=== PATIENT | female | born 1940 | race Caucasian/White ===

== ENCOUNTER 2021-05-06 15:24 | Inpatient (IN) | payer MEDICARE, OTHER ==
[~2021-05-06] VITALS: Ht 147.3 cm; Wt 70.0 kg
[2021-05-06 15:50] LABS: BASOPHILS ABSOLUTE AUTO 0.11 K/mm3 (0.00-0.23); BASOPHILS PERCENT AUTO 1 % (0-2); EOSINOPHILS ABSOLUTE AUTO 0.05 K/mm3 (0.00-0.68); EOSINOPHILS PERCENT AUTO 0 % (0-6); Hematocrit 37.8 % (33.0-51.0); Hemoglobin 12.5 g/dL (11.5-16.0); IMMATURE GRAN ABSOLUTE AUTO 0.26 K/mm3 (0.00-0.10); IMMATURE GRAN PERCENT AUTO 1 % (0-1); LYMPHOCYTES ABSOLUTE AUTO 1.03 K/mm3 (0.84-5.20); LYMPHOCYTES PERCENT AUTO 5 % (21-46); MONOCYTES ABSOLUTE AUTO 1.38 K/mm3 (0.16-1.47); MONOCYTES PERCENT AUTO 7 % (4-13); Mean Corpuscular HGB Conc 33.1 g/dL (31.5-36.5); Mean Corpuscular Volume 91 fL (80-100); Mean Platelet Volume 9.4 fL (9.1-12.4); NEUTROPHILS ABSOLUTE AUTO 17.61 K/mm3 (1.96-9.15); NEUTROPHILS PERCENT AUTO 86 % (41-73); Platelet Count 326 K/mm3 (150-400); RDW Coefficient Variation 13.6 % (11.7-14.2); RDW Standard Deviation 46.1 fL (35.1-46.3); Red Blood Cell Count 4.16 M/mm3 (3.80-5.20); White Blood Cell Count 20.44 K/mm3 (4.00-11.30)
[2021-05-06 16:25] LABS: Alanine Aminotransfer (ALT/SGP 26 U/L (12-78); Albumin, Blood 2.8 g/dL (3.4-5.0); Albumin/Globulin Ratio 0.8 (0.8-1.8); Alk Phos 133 U/L (50-136); Anion Gap 5 mmol/L (6-16); Aspartate Aminotrans (AST/SGOT 18 U/L (12-37); Bilirubin, Total 0.6 mg/dL (0.1-1.0); Blood Urea Nitrogen 14 mg/dL (8-24); CO2, Blood 31 mmol/L (21-32); Calcium, Blood 8.9 mg/dL (8.5-10.1); Chloride, Blood 100 mmol/L (98-108); Creatinine, Blood 0.74 mg/dL (0.40-1.00); Globulin, Blood 3.4 g/dL (2.2-4.0); Glomerular Filtration Rate >60 (60-); Glucose, Blood 241 mg/dL (70-99); Potassium, Blood 3.2 mmol/L (3.5-5.5); Sodium, Blood 136 mmol/L (136-145); Total Protein, Blood 6.2 g/dL (6.4-8.2); Troponin I <0.015 ng/mL (0.000-0.040)
[2021-05-06 16:27] LABS: Influenza A, PCR NEGATIVE (NEGATIVE); Influenza B, PCR NEGATIVE (NEGATIVE); Resp Syncytial Virus, PCR NEGATIVE (NEGATIVE); SARS-Cov-2 (COVID-19) PCR, MMC NEGATIVE (NEGATIVE)
--- NOTE | 2021-05-06 17:50 | NUR ---
PT GIVEN SVN ORDERED. BS CRACKLES AT LLL WITH SCAT WHEEZES. FAIR AERATION. PT [place]IRAG MP TX WELL. LOOSE NPC.
[2021-05-06] MEDS ORDERED: LEVSOD75 PO (22:29)
[2021-05-06] MEDS ORDERED: HYDCHL25 PO (22:33)
[2021-05-06] MEDS ORDERED: Prozac40 MG PO (22:36)
[2021-05-06] MEDS ORDERED: OMEP20ER PO ×2 (22:37→22:38)
[2021-05-06] MEDS ORDERED: LOSA50 PO ×2 (22:37→22:46)
[2021-05-06] MEDS ORDERED: K-TAB ER20 ME1 PO (22:44)
[2021-05-06] MEDS ORDERED: FURO20 PO (22:45)
[2021-05-06] MEDS ORDERED: IBUP800 PO (22:49)
[2021-05-06] MEDS ORDERED: COLACE100 MG PO (22:52)
[2021-05-06] MEDS ORDERED: SENNA LAXATIVE8.6 MG PO (22:54)
[2021-05-06] MEDS ORDERED: Lovastatin20 MG PO (22:58)
[2021-05-06] MEDS ORDERED: ASPI81CH PO (23:01)
[2021-05-06] MEDS ORDERED: MELATONIN5 M1 PO (23:01)
[2021-05-06] MEDS ORDERED: TIOT18 INH (23:02)
[2021-05-06] MEDS ORDERED: ALBU90OI INH (23:04)
[2021-05-06] MEDS ORDERED: CENTRUM SILVER1 EAC2 PO (23:05)
[2021-05-06] MEDS ORDERED: Guaifenesin Wit10 ML PO (23:09)
[2021-05-06] MEDS ORDERED: IBUP400 PO (23:10)
[2021-05-06] MEDS ORDERED: ACET325 PO (23:12)
[2021-05-06] MEDS ORDERED: Benadryl25 MG PO (23:14)
[2021-05-07 04:41] LABS: Hematocrit 35.3 % (33.0-51.0); Hemoglobin 11.6 g/dL (11.5-16.0); Mean Corpuscular HGB 29.7 pg (26.0-34.0); Mean Corpuscular HGB Conc 32.9 g/dL (31.5-36.5); Mean Corpuscular Volume 90 fL (80-100); Mean Platelet Volume 9.7 fL (9.1-12.4); Platelet Count 338 K/mm3 (150-400); RDW Coefficient Variation 13.7 % (11.7-14.2); RDW Standard Deviation 45.3 fL (35.1-46.3); Red Blood Cell Count 3.91 M/mm3 (3.80-5.20)
[2021-05-07 04:59] LABS: Anion Gap 8 mmol/L (6-16); Blood Urea Nitrogen 18 mg/dL (8-24); Bun/Creatinine Ratio 24.3 (12.0-20.0); CO2, Blood 30 mmol/L (21-32); Calcium, Blood 9.1 mg/dL (8.5-10.1); Chloride, Blood 99 mmol/L (98-108); Creatinine, Blood 0.74 mg/dL (0.40-1.00); Glomerular Filtration Rate >60 (60-); Glucose, Blood 279 mg/dL (70-99); Potassium, Blood 3.4 mmol/L (3.5-5.5); Sodium, Blood 137 mmol/L (136-145)
--- NOTE | 2021-05-07 08:56 | NUR ---
Spoke with Dr. Davis regarding code status. Her H&P states DNR, but her orders say Full code. MD will address. Pt was also requesting prn for cough, order added.
--- NOTE | 2021-05-07 14:23 | NUR ---
Initial Interview with [facility] Community Manager Bilingual 1. Who did you speak with? Spoke with patient 2. What is the patient's prior level of functions? Independent lives with sister Suze. Suze assists with ADL's: Cooking, cleaning, bathing, and shopping. Patient has a home in [place], but due to increased need with ADL's patient and her (now ) moved to [facility] with her sister Suze. Patient with live here for the winter and return to [facility] when it is warmer. 3. What is the patient's current living situation? Lives with Suze (sister); they live in a two bedroom bungalow with stairs in the front; there is a ramp in the back if needed. 4. Is the patient and/or family able to provide transportation to and from doctor's appointments and case picker prescriptions? Yes, Suze provides transportation as needed. 5. Does patient still drive? No 6. POA/PCP/NOK: NOK: Suze (sister)/PCP: Dr. Jessika Hinojosa 7. Discharge goals: Home/TBD -Home: patient more than likely will discharge home-no barriers; patient has running water/utilities/safe home environment/support network -DME: TBD; patient has a walker ('s); cane -Medication Management: self-management/sister assists If needed -[facility] -Housekeeping need: sister Suze assists as needed -Cooking: Suze assists as needed 8. List barriers to discharge: None known at this time 9. Discharge Plan: Plan is to discharge home/TBD 10. PCP Follow up appointment: Will be scheduled within seven calendar days of discharge
--- NOTE | 2021-05-07 15:20 | NUR ---
Pt A&Ox4, pleasant with cares. VSS on 2L. Wheezing heard, pt is getting breathing tx and solumedrol. Diet changed to mechanical soft due to pt not having top dentures. PT/OT did evals on pt. recommended outpt PT and FWW. Pt had only been using cane at home and was having frequent falls. Code status changed to DNR per pt wishes. Cough medication added today. CBG elevated today [phone], sliding scale used per orders. Last BM 05/06. Pt up to BSC w/ FWW. Pt uses CPAP at night. RR high 20-30s with frequent cough and wheezing. RT is following pt and giving txs.
--- NOTE | 2021-05-07 16:06 | NUR ---
Around 1600 pt had a coughing fit that caused her to not be able to catch her breath. Reddened face, oxygen sats were mid 90s on 3-4L. RT called to bedside, but pt just had breathing tx. MD notified and new order for ativan IV added and given as well as prn albuterol neb tx Q2hr. Ativan given with some relief, RR still in 30s and oxygen sats mid 90s on 3L. PRN cough meds given.
--- NOTE | 2021-05-07 16:31 | NUR ---
Pt is still breathing shallow and at a rate of 25-30. Grunting some. IV solumedrol will be given at 1800.
--- NOTE | 2021-05-07 18:07 | NUR ---
Pt was having the cough again where she had a hard time catching her breath and desat to 87-90 on 4L oxygen. RT notified to give prn neb.
--- NOTE | 2021-05-07 18:43 | NUR ---
RT placed CPAP on pt due to work of breathing and gave a prn albuterol neb.
[2021-05-08 03:33] LABS: Hematocrit 35.8 % (33.0-51.0); Hemoglobin 11.7 g/dL (11.5-16.0); Mean Corpuscular HGB 29.6 pg (26.0-34.0); Mean Corpuscular HGB Conc 32.7 g/dL (31.5-36.5); Mean Corpuscular Volume 91 fL (80-100); Mean Platelet Volume 9.3 fL (9.1-12.4); Platelet Count 367 K/mm3 (150-400); RDW Coefficient Variation 13.8 % (11.7-14.2); RDW Standard Deviation 46.2 fL (35.1-46.3); Red Blood Cell Count 3.95 M/mm3 (3.80-5.20); White Blood Cell Count 23.56 K/mm3 (4.00-11.30)
[2021-05-08 03:59] LABS: Alanine Aminotransfer (ALT/SGP 42 U/L (12-78); Albumin, Blood 2.9 g/dL (3.4-5.0); Albumin/Globulin Ratio 0.9 (0.8-1.8); Alk Phos 129 U/L (50-136); Anion Gap 7 mmol/L (6-16); Aspartate Aminotrans (AST/SGOT 25 U/L (12-37); Bilirubin, Total 0.3 mg/dL (0.1-1.0); Blood Urea Nitrogen 28 mg/dL (8-24); Bun/Creatinine Ratio 34.7 (12.0-20.0); CO2, Blood 32 mmol/L (21-32); Calcium, Blood 9.4 mg/dL (8.5-10.1); Chloride, Blood 99 mmol/L (98-108); Creatinine, Blood 0.81 mg/dL (0.40-1.00); Globulin, Blood 3.2 g/dL (2.2-4.0); Glomerular Filtration Rate >60 (60-); Glucose, Blood 272 mg/dL (70-99); Potassium, Blood 3.6 mmol/L (3.5-5.5); Sodium, Blood 138 mmol/L (136-145); Total Protein, Blood 6.1 g/dL (6.4-8.2)
[2021-05-08 04:01] LABS: BAND PERCENT MAN 21 % (0-8); BASOPHILS PERCENT MAN 0 % (0-2); EOSINOPHILS PERCENT MAN 0 % (0-6); LYMPHOCYTES PERCENT MAN 3 % (21-46); MONOCYTES ABSOLUTE MAN 0.47 K/mm3 (0.16-1.47); MONOCYTES PERCENT MAN 2 % (4-13); MYELOCYTE ABSOLUTE MAN 0.23 K/mm3 (0.00-0.00); MYELOCYTE PERCENT MAN 1 % (0-0); NEUTROPHILS ABSOLUTE MAN 22.14 K/mm3 (1.96-9.15); SEG NEUTROPHILS PERCENT MAN 73 % (41-73); TOTAL CELLS COUNTED 100
--- NOTE | 2021-05-08 07:31 | NUR ---
SHIFT SUMMARY PT A&OX4. SP02>90% ON 5L NC. PT WORE CPAP AT [facility]. TELEMETRY READS AFIB, HR 70'S. PT INCONTINENT, C/D ATTENDS IN PLACE. WHEN WAKING PT UP FOR 0600 MEDICATIONS, PT TOOK TYLENOL FOR HIP PAIN AND BEGAN COUGHING AFTER SWALLOWING. THIS RN ASKED PT IF SHE CHOKED ON THE WATER. PT STATED NO, JUST HAVING A HARD TIME BREATHING. PT HAD MOIST COUGH. CALL PLACED TO RESPIRATORY THERAPY FOR BREATHING TREATMENT. RT IN ROOM, RECOMMENEDED DIURESING. CALL PLACED TO MD NEREIDA WITH ORDERS FOR LASIX AND CHEST XRAY. CALL LIGHT IN REACH. XRAY TO ROOM, WAITING FOR RESULTS. PT RESTING IN ROOM.
--- NOTE | 2021-05-08 14:59 | NUR ---
Pt sustaining 130-140s on torre monitor in room. Notified MD and tele was reordered and he would like for her transfer orders to be d/c at this time.
--- NOTE | 2021-05-08 15:19 | NUR ---
HR SUSTAINING 140S AFTER TELE APPLIED, PRN METOPROLOL 5MG IV PUSH GIVEN. VSS AND PT STATED FEELING A LITTLE MORE SOB, BUT NO PALPATATIONS OR OTHER SYMPTOMS AT THIS TIME.
--- NOTE | 2021-05-08 17:29 | NUR ---
Pt had another brochospasm and had prn ativan and neb and was also placed on CPAP. Desaturation to 85 on 5L, had to titrate up to 12L, paged RT. HR is still 130-140s on 15mg/hr of cardizem gtt and after IV metoprolol 5mg push, notifed.
--- NOTE | 2021-05-08 17:54 | NUR ---
Pt is still sustaining 120-140s on 15mg/hr of cardizem, BP stable. Cardiology consulted w/ phone call by charge account clerk. Powerglide is being placed for second IV access.
--- NOTE | 2021-05-08 18:26 | NUR ---
Pt will have cardioversion in AM, NPO midnight.
--- NOTE | 2021-05-08 19:22 | NUR ---
Shift note: Pt is alert and oriented, forgetful at times. VSS on 3L most of the day. Around 1600 pt had bronchospasm and was having trouble breathing, RT called to bedside and pt was given prn neb tx and placed on CPAP and given 0.5mg ativan. Pt was titrated up to as high as 12L to sustain above 90s. Was able to titrate back down to 5L on CPAP before end of shift. Pt was not on tele, but noticed the torre monitor was reading in 140s, tele ordered and pt was sustaining 130-140s. MD notified. Metoprolol 5mg IV push given with no effect. Cardizem gtt initiated and titrated up to 15mg/hr and still not much effect and was sustaining 130-140s, cardiology consulted. Pt will get FLAQUITA w/ cardioversion in AM if rate does not decrease overnight. Cardiologis made some additional changes to meds, see MAR. Pt will be NPO midnight. IV lasix given per orders. Crackles heard in bilater lower ext. IV solumedrol continued per orders and cough syrup given x1 today. ECHO completed today, see results. Pt is on mechanical soft diet due to no top dentures. CBGs have been high, sliding scale used per orders.
--- NOTE | 2021-05-08 19:45 | NUR ---
ASSUMED CARE OF PATIENT AT 1900. A/OX4 BUT FORGETFUL AT TIMES. PT REPORTS L CP THAT FEELS MUSCULAR FROM COUGHING AND IS CHRONIC IN NATURE PER PT. MAINTAINING ABOVE 90% ON 5L CPAP. LS DIM BELOW W/ FINE CRACKLES, AND FINE CRACKLES ON TOP. DESATS WITH COUGH PER REPORT FROM DAYSHIFT. AFIB ON TELEMETRY AVG 122, TRACE BLE EDEMA. FRAGILE SKIN WITH SCATTERED BRUISING. WILL UPDATE CHANGES OCCUR.
[2021-05-09 14:53] LABS: Hematocrit 40.2 % (33.0-51.0); Mean Corpuscular HGB 29.5 pg (26.0-34.0); Mean Corpuscular HGB Conc 32.3 g/dL (31.5-36.5); Mean Corpuscular Volume 91 fL (80-100); Mean Platelet Volume 9.3 fL (9.1-12.4); Platelet Count 499 K/mm3 (150-400); RDW Coefficient Variation 13.5 % (11.7-14.2); RDW Standard Deviation 46.3 fL (35.1-46.3)
[2021-05-09 15:24] LABS: BAND PERCENT MAN 7 % (0-8); BASOPHILS PERCENT MAN 0 % (0-2); EOSINOPHILS PERCENT MAN 0 % (0-6); LYMPHOCYTES ABSOLUTE MAN 1.26 K/mm3 (0.84-5.20); LYMPHOCYTES PERCENT MAN 6 % (21-46); METAMYELOCYTE ABSOLUTE MAN 0.42 K/mm3 (0.00-0.00); METAMYELOCYTE PERCENT MAN 2 % (0-0); MONOCYTES ABSOLUTE MAN 0.84 K/mm3 (0.16-1.47); MONOCYTES PERCENT MAN 4 % (4-13); MYELOCYTE ABSOLUTE MAN 0.42 K/mm3 (0.00-0.00); MYELOCYTE PERCENT MAN 2 % (0-0); NEUTROPHILS ABSOLUTE MAN 18.14 K/mm3 (1.96-9.15); SEG NEUTROPHILS PERCENT MAN 79 % (41-73); TOTAL CELLS COUNTED 100
[2021-05-09 15:29] LABS: Alanine Aminotransfer (ALT/SGP 73 U/L (12-78); Albumin, Blood 2.9 g/dL (3.4-5.0); Albumin/Globulin Ratio 0.8 (0.8-1.8); Alk Phos 136 U/L (50-136); Anion Gap 7 mmol/L (6-16); Aspartate Aminotrans (AST/SGOT 32 U/L (12-37); Bilirubin, Total 0.4 mg/dL (0.1-1.0); Blood Urea Nitrogen 40 mg/dL (8-24); Bun/Creatinine Ratio 45.9 (12.0-20.0); CO2, Blood 35 mmol/L (21-32); Calcium, Blood 9.7 mg/dL (8.5-10.1); Chloride, Blood 100 mmol/L (98-108); Creatinine, Blood 0.87 mg/dL (0.40-1.00); Globulin, Blood 3.6 g/dL (2.2-4.0); Glomerular Filtration Rate >60 (60-); Glucose, Blood 215 mg/dL (70-99); Potassium, Blood 3.7 mmol/L (3.5-5.5); Sodium, Blood 142 mmol/L (136-145); Total Protein, Blood 6.5 g/dL (6.4-8.2)
--- NOTE | 2021-05-09 18:03 | NUR ---
PT REMAINS ON 10MG/HR CARDIZEM GTT, NO CHANGE IN HR OR RHYTHM AT THIS TIME. CARDIOVERSION DID NOT TAKE PLACE TODAY. PT RESTING WELL IN BED, SHE IS INCONTENENT OF URINE BUT IS ABLE TO HELP CHANGE ATTENEDS. PT A/O X3 ANSWERING QUESITONS APPROPRIATELY. DENIES CP OR SOB. VSS. HR 80-90 WITH AFIB ON MONITOR
--- NOTE | 2021-05-10 02:09 | NUR ---
ASSUMED CARE OF PATIENT AT 1900. A/OX4. INTERMITTENT L CHEST PAIN THAT IS CHRONIC FOR PATIENT, SAYS "WORSE WHEN I COUGH". DENIES ANY SOB. MAINTAINS OVER 90% ON 4L NC OR 5L CPAP AT HS. EXPIRATORY WHEEZES T/O ALL LUNG BELTRÁN. AFIB ON TELEMETRY 80-100'S, UP TO 140'S WITH COUGH EPISODES. CARDIZEM AT 10MG. MIDWAY THROUGH THE NIGHT, PATIENT HAD A THROAT TIGHTNESS EPISODE. RT GAVE NEB TREATMENT AND PATIENT RECOVERED. DID NOT DESAT WITH EPISODE. WILL UPDATE CHANGES OCCUR.
[2021-05-10 11:39] LABS: Hematocrit 40.4 % (33.0-51.0); IMMATURE GRAN ABSOLUTE AUTO 2.29 K/mm3 (0.00-0.10); IMMATURE GRAN PERCENT AUTO 11 % (0-1); Mean Corpuscular HGB 29.2 pg (26.0-34.0); Mean Corpuscular HGB Conc 32.2 g/dL (31.5-36.5); Mean Corpuscular Volume 91 fL (80-100); Platelet Count 478 K/mm3 (150-400); RDW Coefficient Variation 13.6 % (11.7-14.2); RDW Standard Deviation 45.8 fL (35.1-46.3); Red Blood Cell Count 4.45 M/mm3 (3.80-5.20); White Blood Cell Count 21.07 K/mm3 (4.00-11.30)
[2021-05-10 12:00] LABS: Albumin, Blood 2.8 g/dL (3.4-5.0); Albumin/Globulin Ratio 0.9 (0.8-1.8); Bilirubin, Total 0.3 mg/dL (0.1-1.0); Bun/Creatinine Ratio 46.3 (12.0-20.0); Calcium, Blood 9.1 mg/dL (8.5-10.1); Creatinine, Blood 0.97 mg/dL (0.40-1.00); Globulin, Blood 3.2 g/dL (2.2-4.0); Potassium, Blood 4.1 mmol/L (3.5-5.5)
[2021-05-10 12:30] LABS: BAND PERCENT MAN 11 % (0-8); BASOPHILS PERCENT MAN 0 % (0-2); EOSINOPHILS PERCENT MAN 0 % (0-6); LYMPHOCYTES PERCENT MAN 1 % (21-46); METAMYELOCYTE PERCENT MAN 1 % (0-0); MONOCYTES PERCENT MAN 7 % (4-13); MYELOCYTE PERCENT MAN 3 % (0-0); SEG NEUTROPHILS PERCENT MAN 77 % (41-73); TOTAL CELLS COUNTED 100
[2021-05-10 12:31] LABS: BASOPHILS ABSOLUTE AUTO 0.01 K/mm3 (0.00-0.23); BASOPHILS PERCENT AUTO 0 % (0-2)
--- NOTE | 2021-05-10 17:45 | NUR ---
PT REMAINS ON CARDIZEM 10MG/HR AT THIS TIME, PT REMAINS IN AFIB HR RANGING FROM 80s-90s. PT A/O X3. ANSWERS QUESTIONS APPROPRIATELY IN FULL SENTENCES. PT HAS SLEPT WELL T/O THE DAY. PT REPORTS IMPROVEMENT OF SOB, DENIES CP. VSS. NADN. THERE ARE NO FURTHER CHANGES TO DISCUSS FOR THIS SHIFT.
--- NOTE | 2021-05-10 20:35 | NUR ---
INITIAL ASSESSMENT: PATIENT A/OX3. DENIES PAIN. ON 3L O2 VIA NC, STATES SHE WEARS 2L O2 VIA NC AT HOME BUT WILL TITRATE IT UP AND DOWN DEPENDING ON HER SHORTNESS OF BREATH AND PULSE OX READINGS. TITRATED O2 DOWN TO 2L AND SPO2 IS MAINTAINING IN THE 90'S. SHE SOUNDS SHORT OF BREATH WITH EXERTION AND WITH TALKING A LOT, VOICE IS HOARSE. HEART RATE IN THE 80'S WITH CARDIZEM DRIP AT 10, DECREASED CARDIZEM DRIP TO 5. UP TO BEDSIDE COMMODE WITH STAND BY ASSIST. STATES THAT SHE FEELS "WASHED OUT". USES A WALKING STICK OR WALKER AT HOME. LIVES WITH HER SISTER JANETH. REFUSED SCDS AT THIS TIME. CALL LIGHT IN REACH. BED ALARM ON FOR SAFETY.
[2021-05-11 05:11] LABS: Hematocrit 39.2 % (33.0-51.0); Mean Corpuscular HGB 29.7 pg (26.0-34.0); Mean Corpuscular HGB Conc 33.2 g/dL (31.5-36.5); Mean Corpuscular Volume 90 fL (80-100); Mean Platelet Volume 8.9 fL (9.1-12.4); Platelet Count 466 K/mm3 (150-400); RDW Coefficient Variation 13.4 % (11.7-14.2); RDW Standard Deviation 44.2 fL (35.1-46.3); Red Blood Cell Count 4.37 M/mm3 (3.80-5.20); White Blood Cell Count 20.31 K/mm3 (4.00-11.30)
--- NOTE | 2021-05-11 05:58 | NUR ---
SHIFT SUMMARY: PATIENT A/OX3. HAS NOT ATTEMPTED TO GET UP OOB WITHOUT CALLING THIS SHIFT. HAS DENIED PAIN. CARDIZEM DECREASED TO 5 MG/HR, HEART RATE HAS AVERAGED IN THE 90'S. 2L O2 VIA NC, CPAP WITH 3L BLED IN FOR SLEEP. SMALL AMOUNT OF NAUSEA WHICH WAS RELIEVED WITH A SNACK. UP TO BSC WITH SBA. ABLE TO REPOSITION HERSELF IN BED. STATES THAT SHE FEELS GENERALLY FATIGUED. LIVES WITH HER SISTER. REFUSED SCDS. CALL LIGHT IN REACH. BED ALARM ON FOR SAFETY.
[2021-05-11 06:00] LABS: BAND PERCENT MAN 12 % (0-8); BASOPHILS PERCENT MAN 0 % (0-2); EOSINOPHILS PERCENT MAN 0 % (0-6); LYMPHOCYTES ABSOLUTE MAN 0.81 K/mm3 (0.84-5.20); LYMPHOCYTES PERCENT MAN 4 % (21-46); METAMYELOCYTE ABSOLUTE MAN 0.81 K/mm3 (0.00-0.00); METAMYELOCYTE PERCENT MAN 4 % (0-0); MONOCYTES PERCENT MAN 2 % (4-13); MYELOCYTE ABSOLUTE MAN 1.82 K/mm3 (0.00-0.00); MYELOCYTE PERCENT MAN 9 % (0-0); NEUTROPHILS ABSOLUTE MAN 16.24 K/mm3 (1.96-9.15); PROMYELOCYTE PERCENT MAN 1 % (0-0); SEG NEUTROPHILS PERCENT MAN 68 % (41-73); TOTAL CELLS COUNTED 100
[2021-05-11 06:15] LABS: Albumin, Blood 2.6 g/dL (3.4-5.0); Albumin/Globulin Ratio 0.8 (0.8-1.8); Bilirubin, Total 0.4 mg/dL (0.1-1.0); Bun/Creatinine Ratio 46.6 (12.0-20.0); Calcium, Blood 9.3 mg/dL (8.5-10.1); Creatinine, Blood 0.95 mg/dL (0.40-1.00); Globulin, Blood 3.1 g/dL (2.2-4.0); Potassium, Blood 4.5 mmol/L (3.5-5.5); Total Protein, Blood 5.7 g/dL (6.4-8.2)
--- NOTE | 2021-05-11 17:14 | NUR ---
PT REMAINS ON CARDIZEM GTT, PO CARDIO MEDS ADJUSTED. BACK TO BASELINE HOME O2 SETTINGS. CONTINUES TO HAVE COUGH- COUGH SYRUP X1. HYPERGLYCEMIC THROUGHOUT SHIFT- MD MODIFIED DIET AND INSULIN SLIDING SCALE. WORKED WITH PT- TOLERATED WELL, SEE NOTES. AFEBRILE. AUO. BMX1. TOLERATING CURRENT DIET. FREQUENT ROUNDS TO ENSURE PT SAFETY. PT EDUCATED ON FREQUENT REPOSITIONING TO PREVENT PRESSURE ULCERS. NO APPARENT DISTRESS NOTED. WILL CONTINUE TO MONITOR UNTIL TRANSFER OF CARE TO ONCOMING RN.
[2021-05-12 05:16] LABS: Hematocrit 38.9 % (33.0-51.0); Hemoglobin 12.9 g/dL (11.5-16.0); Mean Corpuscular HGB 29.7 pg (26.0-34.0); Mean Corpuscular HGB Conc 33.2 g/dL (31.5-36.5); Mean Corpuscular Volume 89 fL (80-100); Mean Platelet Volume 8.9 fL (9.1-12.4); Platelet Count 456 K/mm3 (150-400); RDW Coefficient Variation 13.3 % (11.7-14.2); RDW Standard Deviation 44.2 fL (35.1-46.3); Red Blood Cell Count 4.35 M/mm3 (3.80-5.20); White Blood Cell Count 19.25 K/mm3 (4.00-11.30)
--- NOTE | 2021-05-12 05:25 | NUR ---
SHIFT SUMMARY PT IS ALERT AND ORIENTED. THERE HAVE BEEN NO ACUTE CHANGES T/O THE NIGHT. PT DENIES CHEST PAIN/PRESSURE. DENIES SOB. PT IS ON 2L RA AND ON CPAP AT [facility] WITH 3.5L BLEED IN. VITAL SIGNS ARE STABLE. PT HAS BEEN ON CARDIZEM GTT 5MLS/HR WITH HEART RATE AVERAGING IN HIGH 80'S TO 90'S. PT USES BSC WITH FWW, 1 ASSIST. CALL LIGHT IS WITHIN REACH. USES CALL LIGHT APPROPRIETLY.
[2021-05-12 05:37] LABS: BAND PERCENT MAN 9 % (0-8); BASOPHILS PERCENT MAN 0 % (0-2); EOSINOPHILS PERCENT MAN 0 % (0-6); LYMPHOCYTES ABSOLUTE MAN 0.96 K/mm3 (0.84-5.20); LYMPHOCYTES PERCENT MAN 5 % (21-46); METAMYELOCYTE ABSOLUTE MAN 0.19 K/mm3 (0.00-0.00); METAMYELOCYTE PERCENT MAN 1 % (0-0); MONOCYTES ABSOLUTE MAN 0.77 K/mm3 (0.16-1.47); MONOCYTES PERCENT MAN 4 % (4-13); MYELOCYTE ABSOLUTE MAN 0.77 K/mm3 (0.00-0.00); MYELOCYTE PERCENT MAN 4 % (0-0); NEUTROPHILS ABSOLUTE MAN 16.17 K/mm3 (1.96-9.15); PROMYELOCYTE ABSOLUTE MAN 0.38 K/mm3 (0.00-0.00); PROMYELOCYTE PERCENT MAN 2 % (0-0); SEG NEUTROPHILS PERCENT MAN 75 % (41-73); TOTAL CELLS COUNTED 100
[2021-05-12 06:33] LABS: Alanine Aminotransfer (ALT/SGP 51 U/L (12-78); Albumin, Blood 2.7 g/dL (3.4-5.0); Alk Phos 134 U/L (50-136); Anion Gap 9 mmol/L (6-16); Aspartate Aminotrans (AST/SGOT 15 U/L (12-37); Bilirubin, Total 0.3 mg/dL (0.1-1.0); Blood Urea Nitrogen 41 mg/dL (8-24); Bun/Creatinine Ratio 50.4 (12.0-20.0); CO2, Blood 34 mmol/L (21-32); Calcium, Blood 9.3 mg/dL (8.5-10.1); Chloride, Blood 96 mmol/L (98-108); Creatinine, Blood 0.81 mg/dL (0.40-1.00); Globulin, Blood 2.7 g/dL (2.2-4.0); Glomerular Filtration Rate >60 (60-); Glucose, Blood 335 mg/dL (70-99); Potassium, Blood 4.7 mmol/L (3.5-5.5); Sodium, Blood 139 mmol/L (136-145); Total Protein, Blood 5.4 g/dL (6.4-8.2)
--- NOTE | 2021-05-12 17:43 | NUR ---
REMAINS OF CARDIZEM GTT, AFIB WITH HR=80-110'S. CONTINUES TO HAVE HYPERGLYCEMIA, ADDITIONAL DOSE OF REGULAR INSULIN ADMINISTERED (SEE EMAR) AND LANTUS DOSE ADJUSTED. AMBULATED TO BATHROOM WITH FWW AND SBA. FREQUENT ROUNDS TO ENSURE PT SAFETY. ENCOURAGED FREQUENT REPOSITIONING TO PREVENT PRESSURE ULCERS- PT VERBALIZED UNDERSTANDING. PT IN NO APPARENT DISTRESS AT THIS TIME. WILL CONTINUE TO MONITOR UNTIL TRANSFER OF CARE TO ONCOMING RN.
--- NOTE | 2021-05-12 22:20 | NUR ---
PT IS ALERT AND ORIENTED. PT DENIES CHEST PAIN/PRESSURE OR SOB REPORTS FEELING PAIN IN LEFT ABDOMEN. PT IS ABLE TO GET UP TO THE BSC WITH MOD ASSIST. CALL LIGHT IS WITHIN REACH. WILL CONTINUE TO MONITOR.
[2021-05-13 04:15] LABS: Hematocrit 39.5 % (33.0-51.0); Hemoglobin 13.2 g/dL (11.5-16.0); Mean Corpuscular HGB 29.9 pg (26.0-34.0); Mean Corpuscular HGB Conc 33.4 g/dL (31.5-36.5); Mean Corpuscular Volume 89 fL (80-100); Mean Platelet Volume 8.8 fL (9.1-12.4); Platelet Count 440 K/mm3 (150-400); RDW Coefficient Variation 13.5 % (11.7-14.2); RDW Standard Deviation 44.5 fL (35.1-46.3); Red Blood Cell Count 4.42 M/mm3 (3.80-5.20); White Blood Cell Count 20.13 K/mm3 (4.00-11.30)
[2021-05-13 04:38] LABS: Alanine Aminotransfer (ALT/SGP 46 U/L (12-78); Albumin, Blood 2.7 g/dL (3.4-5.0); Albumin/Globulin Ratio 0.9 (0.8-1.8); Alk Phos 120 U/L (50-136); Anion Gap 7 mmol/L (6-16); Aspartate Aminotrans (AST/SGOT 12 U/L (12-37); BAND PERCENT MAN 6 % (0-8); BASOPHILS PERCENT MAN 0 % (0-2); Bilirubin, Total 0.4 mg/dL (0.1-1.0); Blood Urea Nitrogen 38 mg/dL (8-24); Bun/Creatinine Ratio 47.5 (12.0-20.0); CO2, Blood 34 mmol/L (21-32); Calcium, Blood 9.1 mg/dL (8.5-10.1); Chloride, Blood 96 mmol/L (98-108); EOSINOPHILS PERCENT MAN 0 % (0-6); Globulin, Blood 3.1 g/dL (2.2-4.0); Glomerular Filtration Rate >60 (60-); Glucose, Blood 282 mg/dL (70-99); LYMPHOCYTES PERCENT MAN 5 % (21-46); METAMYELOCYTE PERCENT MAN 1 % (0-0); MONOCYTES PERCENT MAN 2 % (4-13); MYELOCYTE PERCENT MAN 4 % (0-0); NEUTROPHILS ABSOLUTE MAN 17.71 K/mm3 (1.96-9.15); Potassium, Blood 4.8 mmol/L (3.5-5.5); SEG NEUTROPHILS PERCENT MAN 82 % (41-73); Sodium, Blood 137 mmol/L (136-145); TOTAL CELLS COUNTED 100; Total Protein, Blood 5.8 g/dL (6.4-8.2)
--- NOTE | 2021-05-13 05:38 | NUR ---
SHIFT SUMMARY PT ALERT AND ORIENTED. VITALS STABLE. NO ACUTE CHANGES T/O SHIFT. PT ON CARDIZEM GTT. DENIES CHEST PAIN AND SOB. USING BSC SBA. BED ALARM ON. CALL LIGHT IS WITHIN REACH.
--- NOTE | 2021-05-13 14:34 | NUR ---
Stopped the cardizem gtt @1430. Pt has been sustaining 80-low 100s.
--- NOTE | 2021-05-13 16:27 | NUR ---
TELE: AFIB 90-100S OFF THE CARDIZEM GTT. NEW DOSE OF CARDIZEM PO AND METOPROLOL GIVEN.
--- NOTE | 2021-05-13 16:48 | NUR ---
Pt is A&Ox4, pleasant with cares. VSS on 2L and CPAP at night. Cardizem gtt was d/c at 1430, new dose of PO cardizem and PO metoprolol started today. Up to BSC w/ min assist. CBG [phone], sliding scale given per orders.
--- NOTE | 2021-05-14 05:10 | NUR ---
SHIFT SUMMARY NO ACUTE CHANGES THIS SHIFT. VSS. AXO. WORE CPAP WHILE ASLEEP. NEW MELATONIN AND TRAZODONE MEDS SUCCESFUL AT HELPING PT SLEEP, SHE HAD BEEN COMPLAINING OF LACK OF SLEEP DURING HER HOSPITAL STAY. PT AFIB HR CONTROLLED 100'S WITH STABLE BP. OTHERWISE, PT RESTING T/O NIGHT. CALL LIGHT WITHIN REACH. BED ALARM ON.
[2021-05-14 05:24] LABS: Hematocrit 41.2 % (33.0-51.0); Hemoglobin 13.5 g/dL (11.5-16.0); Mean Corpuscular HGB 29.5 pg (26.0-34.0); Mean Corpuscular HGB Conc 32.8 g/dL (31.5-36.5); Mean Corpuscular Volume 90 fL (80-100); Mean Platelet Volume 9.1 fL (9.1-12.4); Platelet Count 407 K/mm3 (150-400); RDW Coefficient Variation 13.8 % (11.7-14.2); Red Blood Cell Count 4.57 M/mm3 (3.80-5.20); White Blood Cell Count 17.86 K/mm3 (4.00-11.30)
[2021-05-14 06:09] LABS: Alanine Aminotransfer (ALT/SGP 40 U/L (12-78); Albumin, Blood 2.7 g/dL (3.4-5.0); Alk Phos 114 U/L (50-136); Anion Gap 6 mmol/L (6-16); Aspartate Aminotrans (AST/SGOT 8 U/L (12-37); Bilirubin, Total 0.5 mg/dL (0.1-1.0); Blood Urea Nitrogen 45 mg/dL (8-24); Bun/Creatinine Ratio 53.3 (12.0-20.0); CO2, Blood 34 mmol/L (21-32); Calcium, Blood 9.1 mg/dL (8.5-10.1); Chloride, Blood 96 mmol/L (98-108); Creatinine, Blood 0.85 mg/dL (0.40-1.00); Globulin, Blood 2.6 g/dL (2.2-4.0); Glomerular Filtration Rate >60 (60-); Glucose, Blood 267 mg/dL (70-99); Magnesium, Blood 2.4 mg/dL (1.6-2.4); Phosphorus, Blood 4.3 mg/dL (2.5-4.9); Potassium, Blood 5.1 mmol/L (3.5-5.5); Sodium, Blood 136 mmol/L (136-145); Total Protein, Blood 5.3 g/dL (6.4-8.2)
[2021-05-14 07:21] LABS: BAND PERCENT MAN 5 % (0-8); BASOPHILS PERCENT MAN 0 % (0-2); EOSINOPHILS PERCENT MAN 0 % (0-6); LYMPHOCYTES ABSOLUTE MAN 0.17 K/mm3 (0.84-5.20); LYMPHOCYTES PERCENT MAN 1 % (21-46); METAMYELOCYTE ABSOLUTE MAN 0.17 K/mm3 (0.00-0.00); METAMYELOCYTE PERCENT MAN 1 % (0-0); MONOCYTES ABSOLUTE MAN 0.71 K/mm3 (0.16-1.47); MONOCYTES PERCENT MAN 4 % (4-13); MYELOCYTE ABSOLUTE MAN 0.71 K/mm3 (0.00-0.00); MYELOCYTE PERCENT MAN 4 % (0-0); NEUTROPHILS ABSOLUTE MAN 16.07 K/mm3 (1.96-9.15); SEG NEUTROPHILS PERCENT MAN 85 % (41-73); TOTAL CELLS COUNTED 100
--- NOTE | 2021-05-14 17:36 | NUR ---
SHIFT SUMMARY PT HAS BEEN RESTING IN ROOM. PT AMBULATED BY STAND-BY ASSIST TO RESTROOM TWICE, PT TOLERATED WELL. PT HAS DENIED C/O PAIN/DISCOMFORT AND HAS REPOSITIONED SELF FOR PRESSURE AND COMFORT. PT HAD AN EPISODE OF DYSPNEA AFTER AMBULATING TO THE RESTROOM THE SECOND TIME, SpO2 REMAINED >90% AND EPISODE RESOLVED AFTER A FEW MINUTES. ALL VSS, NO CHANGES TO CONDITION.
--- NOTE | 2021-05-15 04:34 | NUR ---
SHIFT SUMMARY: PATIENT A&O X4, RESTED IN BED MOST OF SHIFT WITH BIPAP ON. IV SALINE LOCKED. CALL LIGHT WITHIN REACH. AMBULATED WITH ASSISTANCE TO BEDSIDE COMMODE. CALLS APPROPRIATELY. VS STABLE T/O SHIFT. DID HAVE A COUGHING FIT AFTER AMBULATING TO BSC BUT RECOVERED WITH NO RETURN OF SYMPTOMS THIS SHIFT. WILL REPORT TO ONCOMING RN.
[2021-05-15 06:15] LABS: BASOPHILS ABSOLUTE AUTO 0.17 K/mm3 (0.00-0.23); BASOPHILS PERCENT AUTO 1 % (0-2); EOSINOPHILS ABSOLUTE AUTO 0.01 K/mm3 (0.00-0.68); EOSINOPHILS PERCENT AUTO 0 % (0-6); Hematocrit 40.9 % (33.0-51.0); Hemoglobin 13.5 g/dL (11.5-16.0); IMMATURE GRAN ABSOLUTE AUTO 1.35 K/mm3 (0.00-0.10); IMMATURE GRAN PERCENT AUTO 8 % (0-1); LYMPHOCYTES ABSOLUTE AUTO 1.03 K/mm3 (0.84-5.20); LYMPHOCYTES PERCENT AUTO 6 % (21-46); MONOCYTES ABSOLUTE AUTO 1.77 K/mm3 (0.16-1.47); MONOCYTES PERCENT AUTO 10 % (4-13); Mean Corpuscular HGB 29.5 pg (26.0-34.0); Mean Corpuscular Volume 90 fL (80-100); Mean Platelet Volume 9.1 fL (9.1-12.4); NEUTROPHILS ABSOLUTE AUTO 12.98 K/mm3 (1.96-9.15); NEUTROPHILS PERCENT AUTO 75 % (41-73); Platelet Count 401 K/mm3 (150-400); RDW Coefficient Variation 13.8 % (11.7-14.2); RDW Standard Deviation 44.9 fL (35.1-46.3); Red Blood Cell Count 4.57 M/mm3 (3.80-5.20); White Blood Cell Count 17.31 K/mm3 (4.00-11.30)
[2021-05-15 06:33] LABS: Anion Gap 5 mmol/L (6-16); Blood Urea Nitrogen 48 mg/dL (8-24); Bun/Creatinine Ratio 56.6 (12.0-20.0); CO2, Blood 37 mmol/L (21-32); Calcium, Blood 9.2 mg/dL (8.5-10.1); Chloride, Blood 95 mmol/L (98-108); Creatinine, Blood 0.85 mg/dL (0.40-1.00); Glomerular Filtration Rate >60 (60-); Glucose, Blood 192 mg/dL (70-99); Potassium, Blood 4.8 mmol/L (3.5-5.5); Sodium, Blood 137 mmol/L (136-145)
[2021-05-15 06:37] LABS: BAND PERCENT MAN 1 % (0-8); BASOPHILS PERCENT MAN 0 % (0-2); EOSINOPHILS PERCENT MAN 0 % (0-6); LYMPHOCYTES ABSOLUTE MAN 0.69 K/mm3 (0.84-5.20); LYMPHOCYTES PERCENT MAN 4 % (21-46); METAMYELOCYTE ABSOLUTE MAN 0.34 K/mm3 (0.00-0.00); METAMYELOCYTE PERCENT MAN 2 % (0-0); MONOCYTES ABSOLUTE MAN 0.69 K/mm3 (0.16-1.47); MONOCYTES PERCENT MAN 4 % (4-13); MYELOCYTE ABSOLUTE MAN 1.21 K/mm3 (0.00-0.00); MYELOCYTE PERCENT MAN 7 % (0-0); NEUTROPHILS ABSOLUTE MAN 14.36 K/mm3 (1.96-9.15); SEG NEUTROPHILS PERCENT MAN 82 % (41-73); TOTAL CELLS COUNTED 100
--- NOTE | 2021-05-15 10:43 | NUR ---
PATIENT ALERT AND ORIENTED X4. NEURO WNL BESIDES NUMBNESS AND TINGLING IN LOWER EXTREMITIES. HX OF NEUROPATHY. TELE SHOWING AFIB WITH HR 103. DENIES CHEST PAIN/PRESSURE. VITAL SIGNS STABLE. TRACE EDEMA IN FEET. ON 2 L NASAL CANNULA SATING MID 90'S. AT BASELINE OXYGEN. WEARING CPAP AT NIGHT WITH 2L 02 BLEEDING. DENIES SOB. INCREASED DYSPNEA AND SLIGHT DESATURATION WITH MOVEMENT AND UP TO BATHROOM. SITTING IN CHAIR AT THIS TIME. UP TO BSC WITH 1 PERSON ASSIST. BED ALARM AND CHAIR ALARM ON FOR SAFETY. DENIES ABDOMINAL PAIN/NAUSEA. CALL LIGHT IN REACH. WILL CONTINUE TO MOINTOR. ACHS BLOOD SUGARS. TOLERATING PO WELL.
[2021-05-15] MEDS ORDERED: DILTIAZEM 24HR240 M4 PO (11:48)
[2021-05-15] MEDS ORDERED: METO50ER PO (11:49)
[2021-05-15] MEDS ORDERED: LEVO750 PO (11:49)
[2021-05-15] MEDS ORDERED: Prednisone10 MG (11:51)
[2021-05-15] MEDS ORDERED: VISBIOME 112.51 EACH PO (11:51)
--- NOTE | 2021-05-15 12:10 | NUR ---
Received referral from [facility] Food Clerk (Dorothy Carty) on 05/15/2021. Patient is to discharge today- 05/15/2021 with orders for home health and elected [facility]. Met with patient to further discuss the above. Patient is agreeable to the above. Discussed homebound status definition with patient. Patient verbalized understanding. Discussed what home health is vs what it is not (in home caregivers/housekeeping). Patient verbalized understanding. Discussed the next steps in the process of an initial assessment to determine frequency of visits. Again patient verbalized understanding. Offered a chance for patient to ask questions regarding the above of which there were none. Gathered all supporting documentation for referral (face sheet, face to face, med list, H&P, and most recent PT assessment) and sent to [facility] for review. No further interventions required. Olive Kowalski Referral Liaison
--- NOTE | 2021-05-15 13:18 | NUR ---
DISCHARGE: NO ACUTE CHANGES. DISCHARGE INSTRUCTIONS REVIEWED WHILE SISTER WAS AT BEDSIDE. TRANSFERED PATIENT TO HOME OXYGEN TANK AT 2L NASAL CANNULA. POWERGLIDE REMOVED WNL. SISTER IN TO PICK PATIENT UP. DISCHARGE MEDICATIONS CALLED IN AND REVIEWED WITH PATIENT. PATIENT LEFT UNIT WITH ALL PERSONAL BELONGINGS VIA WHEELCHAIR.
--- NOTE | 2021-05-15 15:43 | NUR ---
Per Dr. Go discharge appropriate on: 05/15/21. Patient does not oppose discharge. Patient's sister (Suze) provided transportation to residence. DME: Patient has a walker, Oxygen ramp for residence and cane. [facility] Home Health coordinator Olive Kowalski contacted to initiate home health per discharge orders. Patient will be contacted by [facility] Transition of Care to schedule hospital follow-up with Dr. Jessika Hinojosa. Patient has a good support network; Sister Suze helps with ADLs and provides transportation as needed. Patient to contact PCP if any questions regarding medication management or if condition worsens, patient to go to urgent care. No barriers to discharge.
--- NOTE | 2021-05-16 09:47 | NUR ---
Got a phone call from Sol Fang, who states there is a discrepancy between the printed med list and medication bottle from [facility]. States Levaquin directions on bottle say "take every other day" and printed instructions from the hospital say "take once a day". Confirmed by looking at the Med Reconciliation discharge orders from the MD that the Medication directions on bottle are correct, and clarified that with the pt's sister. Thanked her for calling to clarify that. She was pleasant and expressed gratitude for the help.
== END 2021-05-15 13:14 | disposition home health service (06) | DRG 871 ==
LOC: ER 15:24 → PCU 20:55 → SURS 05-14 17:03
PROVIDERS: Family Medicine; Hospitalist; Internal Medicine; Physician Assistant; ADMIT Internal Medicine
PROC: 5A09357 Assistance with Respiratory Ventilation, Less than 24 Consecutive Hours, Continuous Positive Airway Pressure (ICD-10-PCS; principal; 2021-05-08)
DX: A41.9 Sepsis, unspecified organism (principal); J18.9 Pneumonia, unspecified organism; J96.21 Acute and chronic respiratory failure with hypoxia; I50.31 Acute diastolic (congestive) heart failure; J45.901 Unspecified asthma with (acute) exacerbation; Z66 Do not resuscitate; E11.65 Type 2 diabetes mellitus with hyperglycemia; T38.0X5A Adverse effect of glucocorticoids and synthetic analogues, initial encounter; I27.20 Pulmonary hypertension, unspecified; Z20.822 Contact with and (suspected) exposure to COVID-19; Z99.81 Dependence on supplemental oxygen; Z88.5 Allergy status to narcotic agent; R26.0 Ataxic gait; Z88.8 Allergy status to other drugs, medicaments and biological substances; E87.6 Hypokalemia; J84.10 Pulmonary fibrosis, unspecified; Z79.899 Other long term (current) drug therapy; E88.09 Other disorders of plasma-protein metabolism, not elsewhere classified; D72.828 Other elevated white blood cell count
CPT/HCPCS: 0241U; 36415; 71045; 71046; 80048; 80053; 82947; 83605; 83690; 83735; 83880; 84100; 84145; 84484; 85025; 85027; 87040; 93005; 93010; 93306; 94640; 94660; 94760; 94762; 96365; 96366; 96367; 96375; 96376; 97110; 97116; 97162; 97166; 97530; 97535; 99285-25; A9270; C1751; J1160; J1650; J1815; J1940; J1956; J2060; J2250; J2270; J2310; J2920; J2930; J3010; J7030; J7050; J7512

== ENCOUNTER 2021-06-07 11:16 | Inpatient (IN) | payer MEDICARE, OTHER ==
[~2021-06-07] VITALS: Ht 147.3 cm; Wt 67.8 kg
[~2021-06-07 11:16] MED LIST: ACET325 PO; ALBU90OI INH; ASPI81CH PO; Benadryl25 MG PO; CENTRUM SILVER1 EAC2 PO; COLACE100 MG PO; DILTIAZEM 24HR240 M4 PO; FURO20 PO; Guaifenesin Wit10 ML PO; HYDCHL25 PO; IBUP400 PO; IBUP800 PO; K-TAB ER20 ME1 PO; LEVO750 PO; LEVSOD75 PO; LOSA50 PO; Lovastatin20 MG PO; MELATONIN5 M1 PO; METO50ER PO; OMEP20ER PO; Prednisone10 MG; Prozac40 MG PO; SENNA LAXATIVE8.6 MG PO; TIOT18 INH; VISBIOME 112.51 EACH PO
[2021-06-07 11:53] LABS: BASOPHILS ABSOLUTE AUTO 0.06 K/mm3 (0.00-0.23); BASOPHILS PERCENT AUTO 1 % (0-2); EOSINOPHILS ABSOLUTE AUTO 0.03 K/mm3 (0.00-0.68); EOSINOPHILS PERCENT AUTO 0 % (0-6); Hematocrit 41.2 % (33.0-51.0); Hemoglobin 13.6 g/dL (11.5-16.0); IMMATURE GRAN ABSOLUTE AUTO 0.24 K/mm3 (0.00-0.10); IMMATURE GRAN PERCENT AUTO 2 % (0-1); LYMPHOCYTES ABSOLUTE AUTO 1.55 K/mm3 (0.84-5.20); LYMPHOCYTES PERCENT AUTO 13 % (21-46); MONOCYTES ABSOLUTE AUTO 0.96 K/mm3 (0.16-1.47); MONOCYTES PERCENT AUTO 8 % (4-13); Mean Corpuscular HGB 28.9 pg (26.0-34.0); Mean Corpuscular Volume 88 fL (80-100); Mean Platelet Volume 9.1 fL (9.1-12.4); NEUTROPHILS ABSOLUTE AUTO 9.17 K/mm3 (1.96-9.15); NEUTROPHILS PERCENT AUTO 76 % (41-73); Platelet Count 334 K/mm3 (150-400); RDW Coefficient Variation 14.1 % (11.7-14.2); RDW Standard Deviation 45.6 fL (35.1-46.3); Red Blood Cell Count 4.71 M/mm3 (3.80-5.20); White Blood Cell Count 12.01 K/mm3 (4.00-11.30)
[2021-06-07 12:16] LABS: Alanine Aminotransfer (ALT/SGP 45 U/L (12-78); Albumin, Blood 2.6 g/dL (3.4-5.0); Albumin/Globulin Ratio 0.6 (0.8-1.8); Alk Phos 100 U/L (50-136); Anion Gap 10 mmol/L (6-16); Aspartate Aminotrans (AST/SGOT 30 U/L (12-37); Bilirubin, Total 0.7 mg/dL (0.1-1.0); Blood Urea Nitrogen 16 mg/dL (8-24); Bun/Creatinine Ratio 21.5 (12.0-20.0); CO2, Blood 28 mmol/L (21-32); Chloride, Blood 96 mmol/L (98-108); Creatinine, Blood 0.74 mg/dL (0.40-1.00); Glomerular Filtration Rate >60 (60-); Glucose, Blood 246 mg/dL (70-99); Potassium, Blood 3.5 mmol/L (3.5-5.5); Sodium, Blood 134 mmol/L (136-145); Total Protein, Blood 6.6 g/dL (6.4-8.2); Troponin I <0.015 ng/mL (0.000-0.040)
[2021-06-07 13:57] LABS: Influenza A, PCR NEGATIVE (NEGATIVE); Influenza B, PCR NEGATIVE (NEGATIVE); Resp Syncytial Virus, PCR NEGATIVE (NEGATIVE); SARS-Cov-2 (COVID-19) PCR, MMC NEGATIVE (NEGATIVE)
--- NOTE | 2021-06-08 04:10 | NUR ---
SHIFT SUMMARY A&OX4, TELE=AFIB 120-140 SBP 109 - PO METOPROLOL GIVEN PER DR. GREEN WITH LITTLE EFFECT PATIENT CONTINUED TO SUSTAIN HIGH 120-130S. 1 L BOLUS ORDERED PATIENT NOW LOW 100-110S. CBG RESULTED 396 MD CONTACTED AND SSI COVERAGE ORDERED. PATIENT HAS DYSPNEA AT BASELINE, TACHYPENIC, RR 25-30, CRACKELS THROUGH OUT ALL BELTRÁN. 8L VIA OXYMIZER AND THEN RT SWITCHED TO CPAP. PATIENT TOELRATED WELL AND USED THROUGH OUT THE NIGHT. ENDORSES URINARY URGENCY AND STRESS INCONT. INTERMITTENT NAUSEA, INDIGESTION, LBM 06/05 DIARRHEA HX OF IBS. SCATTERED ECCYMOSIS TO ABDOMEN. WCTM.
[2021-06-08 05:05] LABS: BASOPHILS ABSOLUTE AUTO 0.02 K/mm3 (0.00-0.23); BASOPHILS PERCENT AUTO 0 % (0-2); EOSINOPHILS PERCENT AUTO 0 % (0-6); Hematocrit 39.5 % (33.0-51.0); Hemoglobin 12.8 g/dL (11.5-16.0); IMMATURE GRAN ABSOLUTE AUTO 0.14 K/mm3 (0.00-0.10); IMMATURE GRAN PERCENT AUTO 2 % (0-1); LYMPHOCYTES ABSOLUTE AUTO 0.52 K/mm3 (0.84-5.20); LYMPHOCYTES PERCENT AUTO 6 % (21-46); MONOCYTES ABSOLUTE AUTO 0.24 K/mm3 (0.16-1.47); MONOCYTES PERCENT AUTO 3 % (4-13); Mean Corpuscular HGB 28.6 pg (26.0-34.0); Mean Corpuscular HGB Conc 32.4 g/dL (31.5-36.5); Mean Corpuscular Volume 88 fL (80-100); Mean Platelet Volume 9.5 fL (9.1-12.4); NEUTROPHILS ABSOLUTE AUTO 7.49 K/mm3 (1.96-9.15); NEUTROPHILS PERCENT AUTO 89 % (41-73); Platelet Count 343 K/mm3 (150-400); RDW Coefficient Variation 14.1 % (11.7-14.2); RDW Standard Deviation 45.5 fL (35.1-46.3); Red Blood Cell Count 4.47 M/mm3 (3.80-5.20); White Blood Cell Count 8.41 K/mm3 (4.00-11.30)
[2021-06-08 06:29] LABS: Anion Gap 8 mmol/L (6-16); Blood Urea Nitrogen 18 mg/dL (8-24); Bun/Creatinine Ratio 26.7 (12.0-20.0); CO2, Blood 27 mmol/L (21-32); Chloride, Blood 102 mmol/L (98-108); Creatinine, Blood 0.67 mg/dL (0.40-1.00); Glomerular Filtration Rate >60 (60-); Glucose, Blood 274 mg/dL (70-99); Potassium, Blood 3.9 mmol/L (3.5-5.5); Sodium, Blood 137 mmol/L (136-145)
--- NOTE | 2021-06-08 18:52 | NUR ---
SUMMARY- PT ALERT AND ORIENTED X4. UP TO BEDSIDE COMMODE 1 SBA, STEADY ON FEET, GOOD STRENGTH. VERY DYSPNIC WITH ACTIVITY, ON 10L OXYMIZER, DOWN FROM 12L EARLIER TODAY. TOLERATING FOOD AND FLUIDS. LUNGS HAVE CRACKLES LOWER 1/2. TELE RATE 120-130 AFIB. CBG'S 200-S, COVERED WITH SSRI.
[2021-06-09 05:06] LABS: BASOPHILS ABSOLUTE AUTO 0.05 K/mm3 (0.00-0.23); BASOPHILS PERCENT AUTO 0 % (0-2); EOSINOPHILS PERCENT AUTO 0 % (0-6); Hematocrit 37.6 % (33.0-51.0); Hemoglobin 12.1 g/dL (11.5-16.0); IMMATURE GRAN ABSOLUTE AUTO 0.36 K/mm3 (0.00-0.10); IMMATURE GRAN PERCENT AUTO 2 % (0-1); LYMPHOCYTES ABSOLUTE AUTO 0.73 K/mm3 (0.84-5.20); LYMPHOCYTES PERCENT AUTO 4 % (21-46); MONOCYTES ABSOLUTE AUTO 0.93 K/mm3 (0.16-1.47); MONOCYTES PERCENT AUTO 5 % (4-13); Mean Corpuscular HGB 28.7 pg (26.0-34.0); Mean Corpuscular HGB Conc 32.2 g/dL (31.5-36.5); Mean Corpuscular Volume 89 fL (80-100); Mean Platelet Volume 9.5 fL (9.1-12.4); NEUTROPHILS ABSOLUTE AUTO 18.62 K/mm3 (1.96-9.15); NEUTROPHILS PERCENT AUTO 90 % (41-73); Platelet Count 436 K/mm3 (150-400); RDW Coefficient Variation 14.2 % (11.7-14.2); RDW Standard Deviation 46.1 fL (35.1-46.3); Red Blood Cell Count 4.21 M/mm3 (3.80-5.20); White Blood Cell Count 20.69 K/mm3 (4.00-11.30)
--- NOTE | 2021-06-09 05:13 | NUR ---
SHIFT SUMMARY PT IS A 81 Y/O FEMALE, ADMITTED FOR SOB. SHE IS A&O X 3, [place] [facility] [place] PT IS ON 10L O2 VIA NC, VERY DYSPNEIC WITH ANY ACTIVITY AND O2 NEEDS INCREASE TO 12-14L WITH AMBULATION. TELE SHOWED AFIB IN THE 110-120S AT REST. VITAL SIGNS OTHERWISE STABLE. NO C/O ACUTE PAIN OR NAUSEA. NO ACUTE CHANGES IN PT CONDITION NOTED DURING THE NIGHT. WILL CONTINUE TO MONITOR AND TREAT PER EMAR UNTIL HAND OFF TO DAY SHIFT RN.
[2021-06-09 05:34] LABS: Anion Gap 4 mmol/L (6-16); Blood Urea Nitrogen 29 mg/dL (8-24); Bun/Creatinine Ratio 39.9 (12.0-20.0); CO2, Blood 30 mmol/L (21-32); Calcium, Blood 9.2 mg/dL (8.5-10.1); Chloride, Blood 105 mmol/L (98-108); Creatinine, Blood 0.73 mg/dL (0.40-1.00); Glomerular Filtration Rate >60 (60-); Glucose, Blood 277 mg/dL (70-99); Potassium, Blood 4.2 mmol/L (3.5-5.5); Sodium, Blood 139 mmol/L (136-145)
[2021-06-09] MEDS ORDERED: HYDCHL25 PO (15:13)
[2021-06-09] MEDS ORDERED: ALBU2.5V5 INH (15:17)
[2021-06-09] MEDS ORDERED: METF500 PO (15:18)
[2021-06-09] MEDS ORDERED: ELIQUIS5 M2 PO (15:22)
--- NOTE | 2021-06-09 17:29 | NUR ---
SUMMARY- PT A/O X3. GETS UP TO BEDSIDE COMMODE. VERY DYSPNIC WITH EXERTION, OXYGEN NEEDS TURNED UP AND PT TAKES 5 MINUTES TO RECOVER FROM ACTIVITY. TAKES PT ABOUT AN HOUR TO EAT MEALS BECAUSE SHE IS SO WINDED. RESP TX CHANGED FROM OXIMYZER 10L TO HIGH FLOW 5L, SATS 95% AT REST, LOWEST SAW 78% AFTER AMBULATED TO BATHROOM FOR BM (DIDN'T WANT TO USE BSC AND INSISTED TO BATHROOM). STATES ABD IS GRUMBLING AND HOPING IBS NOT STARTING. GIVEN SEN[place]OT A FEW HOURS AGO. WILL NOTIFY AND CHANGE TO PRN. DENIES PAIN. CONT BIOX WITH HR FREQ 110-128, MOSTLY 120. PT'S LUNGS WITH CRACKLES IN THE BASES. GIVEN LASIX 40MG IV X1 TODAY. DR CARY MENTIONES SNF TO PATIENT. SHE VOICED TO RN SHE WANT TO GO HOME WITH HER SISTER WHO IS 12 YEARS YOUNGER THAN SHE, AND WILLING TO CARE FOR HER AT HOME. THEY ARE SET UP WITH A HOSPITAL BED, BEDSIDE COMMODE AND OXYGEN. 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 WILL RELAY INFORMATION TO ONCOMING RN.
--- NOTE | 2021-06-10 06:18 | NUR ---
SHIFT SUMMARY PT IS A 81 Y/O FEMALE, ADMITTED FOR SOB. SHE IS A&O X 3, [place]. [place] [facility] [place] PT ON 5L VIA NC SATTING > 90%. DESATS QUICKLY WITH ANY EXERTION DOWN TO THE 70%. ON CPAP AT [facility]. TELE SHOWED AFIB IN THE 120S. ALL OTHER VITAL SIGNS STABLE. NO C/O ACUTE PAIN OR NAUSEA. NO OTHER ACUTE CHANGES IN PT CONDITION NOTED DURING THE NIGHT. WILL CONTINUE TO MONITOR AND TREAT PER EMAR UNTIL HAND OFF TO DAY SHIFT RN.
[2021-06-10 10:13] LABS: BASOPHILS ABSOLUTE AUTO 0.08 K/mm3 (0.00-0.23); BASOPHILS PERCENT AUTO 0 % (0-2); EOSINOPHILS ABSOLUTE AUTO 0.01 K/mm3 (0.00-0.68); EOSINOPHILS PERCENT AUTO 0 % (0-6); Hematocrit 42.4 % (33.0-51.0); Hemoglobin 13.7 g/dL (11.5-16.0); IMMATURE GRAN ABSOLUTE AUTO 0.41 K/mm3 (0.00-0.10); IMMATURE GRAN PERCENT AUTO 2 % (0-1); LYMPHOCYTES ABSOLUTE AUTO 1.17 K/mm3 (0.84-5.20); LYMPHOCYTES PERCENT AUTO 6 % (21-46); MONOCYTES ABSOLUTE AUTO 0.98 K/mm3 (0.16-1.47); MONOCYTES PERCENT AUTO 5 % (4-13); Mean Corpuscular HGB Conc 32.3 g/dL (31.5-36.5); Mean Corpuscular Volume 90 fL (80-100); Mean Platelet Volume 9.3 fL (9.1-12.4); NEUTROPHILS ABSOLUTE AUTO 15.55 K/mm3 (1.96-9.15); NEUTROPHILS PERCENT AUTO 85 % (41-73); Platelet Count 544 K/mm3 (150-400); RDW Coefficient Variation 14.2 % (11.7-14.2); RDW Standard Deviation 46.8 fL (35.1-46.3); Red Blood Cell Count 4.73 M/mm3 (3.80-5.20)
[2021-06-10 10:35] LABS: Alanine Aminotransfer (ALT/SGP 68 U/L (12-78); Albumin, Blood 2.5 g/dL (3.4-5.0); Albumin/Globulin Ratio 0.7 (0.8-1.8); Alk Phos 107 U/L (50-136); Anion Gap 6 mmol/L (6-16); Aspartate Aminotrans (AST/SGOT 30 U/L (12-37); Bilirubin, Total 0.5 mg/dL (0.1-1.0); Blood Urea Nitrogen 39 mg/dL (8-24); Bun/Creatinine Ratio 47.7 (12.0-20.0); CO2, Blood 30 mmol/L (21-32); Calcium, Blood 9.6 mg/dL (8.5-10.1); Chloride, Blood 102 mmol/L (98-108); Creatinine, Blood 0.82 mg/dL (0.40-1.00); Globulin, Blood 3.6 g/dL (2.2-4.0); Glomerular Filtration Rate >60 (60-); Glucose, Blood 261 mg/dL (70-99); Potassium, Blood 4.2 mmol/L (3.5-5.5); Sodium, Blood 138 mmol/L (136-145); Total Protein, Blood 6.1 g/dL (6.4-8.2)
--- NOTE | 2021-06-10 16:04 | NUR ---
SHIFT SUMMARY PT IS A&O, PLEASANT AND CO-OP. SOB WITH EXERTION. DESATS WITH ANY ACTIVITY OR MOVEMENT. A-FIB ON TELE. PT ON CPAP DURING SHIFT REPORT, PLACED ON N/C FOR BREAKFAST. UP TO BSC TO VOID NEEDED; 1P SBA. IV TO LAC LEAKING THIS AFTERNOON; NEW IV PLACED TO RW; PT TOLERATED WELL. DR CRYSTAL HERE TO SEE PT THIS AM; NO NEW ORDERS. ABLE TO TALK ON PHONE W/O DIFFICULTY. DENIES FURTHER NEEDS AT THIS TIME. CALL LT IN REACH.
--- NOTE | 2021-06-11 04:29 | NUR ---
SEASONAL PACKAGE HANDLER SUMMARY AWAKE AT SHIFT COMMENCE. TOLERATED MEDS WELL. O2 PER NC AND CPAP PER RT SCHEDULE - SEE CORRESPONDING DOC FOR DETAILS. MED TELE A FIB AT 97. HAS BEEN RESTING QUIETLY WITH FEW INERRUPTIONS SINCE. CALL LIGHT IN REACH. WILL CONTINUE TO MONITOR
[2021-06-11 05:20] LABS: BASOPHILS ABSOLUTE AUTO 0.11 K/mm3 (0.00-0.23); BASOPHILS PERCENT AUTO 1 % (0-2); EOSINOPHILS ABSOLUTE AUTO 0.02 K/mm3 (0.00-0.68); EOSINOPHILS PERCENT AUTO 0 % (0-6); Hematocrit 40.6 % (33.0-51.0); IMMATURE GRAN ABSOLUTE AUTO 0.66 K/mm3 (0.00-0.10); IMMATURE GRAN PERCENT AUTO 4 % (0-1); LYMPHOCYTES ABSOLUTE AUTO 1.08 K/mm3 (0.84-5.20); LYMPHOCYTES PERCENT AUTO 7 % (21-46); MONOCYTES ABSOLUTE AUTO 1.04 K/mm3 (0.16-1.47); MONOCYTES PERCENT AUTO 7 % (4-13); Mean Corpuscular HGB 28.6 pg (26.0-34.0); Mean Corpuscular Volume 89 fL (80-100); Mean Platelet Volume 9.2 fL (9.1-12.4); NEUTROPHILS ABSOLUTE AUTO 12.85 K/mm3 (1.96-9.15); NEUTROPHILS PERCENT AUTO 82 % (41-73); Platelet Count 551 K/mm3 (150-400); RDW Coefficient Variation 14.1 % (11.7-14.2); RDW Standard Deviation 45.7 fL (35.1-46.3); Red Blood Cell Count 4.55 M/mm3 (3.80-5.20); White Blood Cell Count 15.76 K/mm3 (4.00-11.30)
[2021-06-11 06:10] LABS: Alanine Aminotransfer (ALT/SGP 59 U/L (12-78); Albumin, Blood 2.5 g/dL (3.4-5.0); Albumin/Globulin Ratio 0.8 (0.8-1.8); Alk Phos 97 U/L (50-136); Anion Gap 4 mmol/L (6-16); Aspartate Aminotrans (AST/SGOT 21 U/L (12-37); Bilirubin, Total 0.5 mg/dL (0.1-1.0); Blood Urea Nitrogen 32 mg/dL (8-24); Bun/Creatinine Ratio 40.1 (12.0-20.0); CO2, Blood 34 mmol/L (21-32); Calcium, Blood 9.2 mg/dL (8.5-10.1); Chloride, Blood 99 mmol/L (98-108); Globulin, Blood 3.1 g/dL (2.2-4.0); Glomerular Filtration Rate >60 (60-); Glucose, Blood 180 mg/dL (70-99); Potassium, Blood 4.7 mmol/L (3.5-5.5); Sodium, Blood 137 mmol/L (136-145); Total Protein, Blood 5.6 g/dL (6.4-8.2)
--- NOTE | 2021-06-11 13:08 | NUR ---
I attempted to visit the patient in her [facility] room 342. She was sleeping. Patient's nurse suggested I come back in an hour or two. I would like to offer to complete an OHP application with the patient while she is here in the hospital.
--- NOTE | 2021-06-11 16:47 | NUR ---
patient is awake,alert and oriented denies pain. patient is afib on the tele monitor at 82, no acute distress. she respond appropriately with staff.
--- NOTE | 2021-06-11 17:27 | NUR ---
MADE AWRE OF PATIENT CURRENT BLOOD GLUCOSE OF 358, NO NEW ORDER RECEIVED. PER GIVE INSULIN PER SLIDING SCALE.
--- NOTE | 2021-06-12 04:19 | NUR ---
CHEMICAL PROJECT ENGINEER SUMMARY AWAKE AT SHIFT COMMENCE. HS ACCU CHECK OVER 300. MD ORDERED A DOSE OF LONG ACTING INSULIN TO COVER. HS SNACK GIVEN. PLACED ON CPAP. RT ATTEMPTED TO WEAN OFF O2, DROPPING TO 5L/MIN, BUT SOON HAD DIFFICULTIES AND WAS INCREASED BACK TO 6L AND SATS RETURNED TO NORMAL. HAS BEEN RESTING QUIETLY SINCE HS. CALL LIGHT IN REACH. HOB ELVATED FOR COMFORT. WILL CONTINUE TO MONITOR
[2021-06-12 05:21] LABS: Hematocrit 40.5 % (33.0-51.0); Hemoglobin 13.2 g/dL (11.5-16.0); Mean Corpuscular HGB 28.9 pg (26.0-34.0); Mean Corpuscular HGB Conc 32.6 g/dL (31.5-36.5); Mean Corpuscular Volume 89 fL (80-100); Mean Platelet Volume 9.4 fL (9.1-12.4); Platelet Count 585 K/mm3 (150-400); RDW Coefficient Variation 13.8 % (11.7-14.2); Red Blood Cell Count 4.56 M/mm3 (3.80-5.20); White Blood Cell Count 14.48 K/mm3 (4.00-11.30)
[2021-06-12 05:53] LABS: Alanine Aminotransfer (ALT/SGP 59 U/L (12-78); Albumin, Blood 2.4 g/dL (3.4-5.0); Albumin/Globulin Ratio 0.8 (0.8-1.8); Alk Phos 103 U/L (50-136); Anion Gap 7 mmol/L (6-16); Aspartate Aminotrans (AST/SGOT 24 U/L (12-37); Bilirubin, Total 0.5 mg/dL (0.1-1.0); Blood Urea Nitrogen 39 mg/dL (8-24); Bun/Creatinine Ratio 53.1 (12.0-20.0); CO2, Blood 34 mmol/L (21-32); Calcium, Blood 9.8 mg/dL (8.5-10.1); Chloride, Blood 96 mmol/L (98-108); Creatinine, Blood 0.73 mg/dL (0.40-1.00); Globulin, Blood 3.2 g/dL (2.2-4.0); Glomerular Filtration Rate >60 (60-); Glucose, Blood 201 mg/dL (70-99); Potassium, Blood 4.2 mmol/L (3.5-5.5); Sodium, Blood 137 mmol/L (136-145); Total Protein, Blood 5.6 g/dL (6.4-8.2)
[2021-06-12 06:14] LABS: BAND PERCENT MAN 1 % (0-8); BASOPHILS PERCENT MAN 0 % (0-2); EOSINOPHILS PERCENT MAN 0 % (0-6); LYMPHOCYTES ABSOLUTE MAN 2.46 K/mm3 (0.84-5.20); LYMPHOCYTES PERCENT MAN 17 % (21-46); MONOCYTES ABSOLUTE MAN 0.57 K/mm3 (0.16-1.47); MONOCYTES PERCENT MAN 4 % (4-13); MYELOCYTE ABSOLUTE MAN 0.28 K/mm3 (0.00-0.00); MYELOCYTE PERCENT MAN 2 % (0-0); NEUTROPHILS ABSOLUTE MAN 11.14 K/mm3 (1.96-9.15); SEG NEUTROPHILS PERCENT MAN 76 % (41-73); TOTAL CELLS COUNTED 100
--- NOTE | 2021-06-12 17:35 | NUR ---
PATIENT IS AWAKE,ALERT AND ORIENTED TIMES THREE. DENIES PAIN. PATIENT SIT IN CHAIR TODAY FOR THIRTY MIN. NO ACUTE DISTRESS NOTED.
--- NOTE | 2021-06-13 04:37 | NUR ---
PT RESTING IN BED. NO ACUTE CHANGE IN STATUS. USED PERSONAL CPAP THIS SHIFT TO PREPARE FOR D/C. PLAN TO D/C THURSDAY. REMAINS ON O2 5-6L NC DURING THE DAY. CONTINUE ANTIBIOTICS. CONTINUE POC.
[2021-06-13 05:17] LABS: Hematocrit 43.5 % (33.0-51.0); Hemoglobin 13.9 g/dL (11.5-16.0); Mean Corpuscular HGB 28.5 pg (26.0-34.0); Mean Corpuscular Volume 89 fL (80-100); Mean Platelet Volume 9.2 fL (9.1-12.4); Platelet Count 603 K/mm3 (150-400); RDW Coefficient Variation 13.9 % (11.7-14.2); RDW Standard Deviation 45.1 fL (35.1-46.3); Red Blood Cell Count 4.87 M/mm3 (3.80-5.20)
[2021-06-13 05:46] LABS: BAND PERCENT MAN 1 % (0-8); BASOPHILS PERCENT MAN 0 % (0-2); EOSINOPHILS PERCENT MAN 0 % (0-6); LYMPHOCYTES ABSOLUTE MAN 0.78 K/mm3 (0.84-5.20); LYMPHOCYTES PERCENT MAN 5 % (21-46); MONOCYTES ABSOLUTE MAN 0.93 K/mm3 (0.16-1.47); MONOCYTES PERCENT MAN 6 % (4-13); MYELOCYTE ABSOLUTE MAN 0.15 K/mm3 (0.00-0.00); MYELOCYTE PERCENT MAN 1 % (0-0); NEUTROPHILS ABSOLUTE MAN 13.41 K/mm3 (1.96-9.15); SEG NEUTROPHILS PERCENT MAN 85 % (41-73); TOTAL CELLS COUNTED 100
[2021-06-13 05:47] LABS: METAMYELOCYTE ABSOLUTE MAN 0.31 K/mm3 (0.00-0.00); METAMYELOCYTE PERCENT MAN 2 % (0-0)
[2021-06-13 05:55] LABS: Alanine Aminotransfer (ALT/SGP 56 U/L (12-78); Albumin, Blood 2.6 g/dL (3.4-5.0); Albumin/Globulin Ratio 0.8 (0.8-1.8); Alk Phos 104 U/L (50-136); Anion Gap 5 mmol/L (6-16); Aspartate Aminotrans (AST/SGOT 16 U/L (12-37); Bilirubin, Total 0.5 mg/dL (0.1-1.0); Blood Urea Nitrogen 40 mg/dL (8-24); Bun/Creatinine Ratio 46.9 (12.0-20.0); CO2, Blood 36 mmol/L (21-32); Chloride, Blood 96 mmol/L (98-108); Creatinine, Blood 0.85 mg/dL (0.40-1.00); Globulin, Blood 3.2 g/dL (2.2-4.0); Glomerular Filtration Rate >60 (60-); Glucose, Blood 164 mg/dL (70-99); Potassium, Blood 4.4 mmol/L (3.5-5.5); Sodium, Blood 137 mmol/L (136-145); Total Protein, Blood 5.8 g/dL (6.4-8.2)
--- NOTE | 2021-06-13 16:46 | NUR ---
Met with pt today for initial Palliative visit. She is pleasant, alert and oriented. History of interstitial lung disease, and very recent hospitalization for respiratory failure. At the last visit, she was very clear that she wished to be DNR status, as was noted after several conversations with both RN's and hospitalists. However, this time she has a "Full Code" status, and I asked her about it. She pulled out a copy of a POLST she had filled out last week at her PCP's office, and she reports she decided to make the change after discussion with her PCP, and he had expressed to her she may end up needing vent care at one of these hospitalizations, but that it would "Likely not be permanent" according to pt's understanding. I made a copy of her POLST with her permission, and will send to medical records.
--- NOTE | 2021-06-13 16:57 | NUR ---
PATIENT IS AWAKE,ALET AND ORIENTED TIMES THREE. DENIES PAIN. PATIENT SIT IN THE CHAIR FOR ONE HOUR TODAY.DR. CRYSTAL MADE AWARE OF
--- NOTE | 2021-06-13 17:39 | NUR ---
DR. CRYSTAL RETURN CALL, CHANGE MADE TO LONG ACTING INSULIN( SEE MAR) IN REGARD TO PATIENT BLOOD SUGAR OF 389.
--- NOTE | 2021-06-13 17:57 | NUR ---
Spoke to pt's brother Benja, who tells me he is sending over a copy of pt's AD. However, pt's states his updated will places her in charge to make his health decisions if he is incapacitated. The current issue, is he is not fully incapacitated and is able to make his wishes known. And she agrees, we'll continue with no tube feeding, and let him eat what he wants. Bedside RN reports he ate his entire dinner with minimal issues tonight. Unsure of discharge plans, but Spouting Installer [facility].
--- NOTE | 2021-06-14 03:45 | NUR ---
ANNETTE SLEPT WELL OVERNIGHT GETTING OOB WITH CYCLE TOURING GUIDE ONLY TWICE. SHE IS DISCOURAGED THAT SHE IS STILL NEEDING SO MANY LITERS OF 02. STATES HER HOME BASELINE IS 2 LITERS NC DURING DAY AND AT NIGHT BLED INTO HER CPAP. DURING CONVERSATION, SHE WAS VERY SOB AND HAD TO BE REMINDED A COUPLE OF TIMES TO LIMIT HER SPEAKING WHEN SHE IS HAVING TROUBLE CATCHING HER BREATH. CBG AT HS WAS 245. 20 UNITS OF LANTUS GIVEN PER EMAR. NO COMPLAINTS OF DISCOMFORT OVERNIGHT
[2021-06-14 05:24] LABS: EOSINOPHILS ABSOLUTE AUTO 0.09 K/mm3 (0.00-0.68); EOSINOPHILS PERCENT AUTO 1 % (0-6); Hematocrit 44.4 % (33.0-51.0); Hemoglobin 14.4 g/dL (11.5-16.0); IMMATURE GRAN ABSOLUTE AUTO 1.11 K/mm3 (0.00-0.10); IMMATURE GRAN PERCENT AUTO 8 % (0-1); LYMPHOCYTES ABSOLUTE AUTO 1.63 K/mm3 (0.84-5.20); LYMPHOCYTES PERCENT AUTO 11 % (21-46); MONOCYTES ABSOLUTE AUTO 1.28 K/mm3 (0.16-1.47); MONOCYTES PERCENT AUTO 9 % (4-13); Mean Corpuscular HGB 28.6 pg (26.0-34.0); Mean Corpuscular HGB Conc 32.4 g/dL (31.5-36.5); Mean Corpuscular Volume 88 fL (80-100); Mean Platelet Volume 9.3 fL (9.1-12.4); NEUTROPHILS ABSOLUTE AUTO 10.76 K/mm3 (1.96-9.15); NEUTROPHILS PERCENT AUTO 72 % (41-73); Platelet Count 640 K/mm3 (150-400); RDW Coefficient Variation 13.9 % (11.7-14.2); RDW Standard Deviation 44.7 fL (35.1-46.3); Red Blood Cell Count 5.03 M/mm3 (3.80-5.20); White Blood Cell Count 14.89 K/mm3 (4.00-11.30)
[2021-06-14 05:35] LABS: BASOPHILS ABSOLUTE AUTO 0.02 K/mm3 (0.00-0.23); BASOPHILS PERCENT AUTO 0 % (0-2)
[2021-06-14 05:52] LABS: Alanine Aminotransfer (ALT/SGP 61 U/L (12-78); Albumin, Blood 2.7 g/dL (3.4-5.0); Albumin/Globulin Ratio 0.8 (0.8-1.8); Alk Phos 95 U/L (50-136); Anion Gap 6 mmol/L (6-16); Aspartate Aminotrans (AST/SGOT 20 U/L (12-37); Bilirubin, Total 0.6 mg/dL (0.1-1.0); Blood Urea Nitrogen 42 mg/dL (8-24); Bun/Creatinine Ratio 48.4 (12.0-20.0); CO2, Blood 36 mmol/L (21-32); Calcium, Blood 9.4 mg/dL (8.5-10.1); Chloride, Blood 93 mmol/L (98-108); Creatinine, Blood 0.87 mg/dL (0.40-1.00); Globulin, Blood 3.3 g/dL (2.2-4.0); Glomerular Filtration Rate >60 (60-); Glucose, Blood 165 mg/dL (70-99); Sodium, Blood 135 mmol/L (136-145)
[2021-06-14 06:01] LABS: BAND PERCENT MAN 2 % (0-8); BASOPHILS PERCENT MAN 0 % (0-2); EOSINOPHILS PERCENT MAN 0 % (0-6); LYMPHOCYTES ABSOLUTE MAN 1.63 K/mm3 (0.84-5.20); LYMPHOCYTES PERCENT MAN 11 % (21-46); MONOCYTES ABSOLUTE MAN 1.48 K/mm3 (0.16-1.47); MONOCYTES PERCENT MAN 10 % (4-13); MYELOCYTE ABSOLUTE MAN 0.29 K/mm3 (0.00-0.00); MYELOCYTE PERCENT MAN 2 % (0-0); NEUTROPHILS ABSOLUTE MAN 11.46 K/mm3 (1.96-9.15); SEG NEUTROPHILS PERCENT MAN 75 % (41-73); TOTAL CELLS COUNTED 100
--- NOTE | 2021-06-14 17:31 | NUR ---
SHIFT SUMMARY NO ACUTE CHANGES THIS SHIFT. PT CURRENTLY ON 6-8 LITERS O2 AND C/O DYSPNEA WITH ANY MOVEMENT AND SPEAKING. CONT/INCONT AND A HEAVY WETTER. PUREWICK PLACED THIS SHIFT. NO COMPLAINTS AND PT IS COMFORTABLE. WORKED WITH PHYSICAL THERAPY THIS SHIFT. VSS. WILL REPORT TO AN DONNELLY.
--- NOTE | 2021-06-15 03:58 | NUR ---
SHIFT SUMMARY ADMITTED FOR PNEUMONIA. FULL CODE. PLAN IS FOR DC HOME TO SISTER'S RESIDENCE W/HH WHEN STABLE. SHE IS ON ELIQUIS. SHE IS ON 6 LPM O2 HERE, 2 LPM O2 @ HOME. SHE USES A CPAP @ PM. PUREWICK CATHETER IS IN PLACE FOR PERIODS OF INCONTINENCE. SHE IS A 1 ASSIST TO BS. I HAVE NO NEW CONCERNS THIS SHIFT.
[2021-06-15 05:14] LABS: Hematocrit 43.7 % (33.0-51.0); Hemoglobin 13.9 g/dL (11.5-16.0); Mean Corpuscular HGB 28.3 pg (26.0-34.0); Mean Corpuscular HGB Conc 31.8 g/dL (31.5-36.5); Mean Corpuscular Volume 89 fL (80-100); Mean Platelet Volume 8.8 fL (9.1-12.4); Platelet Count 609 K/mm3 (150-400); RDW Coefficient Variation 13.9 % (11.7-14.2); RDW Standard Deviation 45.1 fL (35.1-46.3); Red Blood Cell Count 4.92 M/mm3 (3.80-5.20); White Blood Cell Count 14.01 K/mm3 (4.00-11.30)
[2021-06-15 05:33] LABS: BAND PERCENT MAN 2 % (0-8); BASOPHILS PERCENT MAN 0 % (0-2); EOSINOPHILS PERCENT MAN 0 % (0-6); LYMPHOCYTES PERCENT MAN 15 % (21-46); METAMYELOCYTE ABSOLUTE MAN 0.14 K/mm3 (0.00-0.00); METAMYELOCYTE PERCENT MAN 1 % (0-0); MONOCYTES PERCENT MAN 5 % (4-13); MYELOCYTE ABSOLUTE MAN 0.42 K/mm3 (0.00-0.00); MYELOCYTE PERCENT MAN 3 % (0-0); NEUTROPHILS ABSOLUTE MAN 10.64 K/mm3 (1.96-9.15); SEG NEUTROPHILS PERCENT MAN 74 % (41-73); TOTAL CELLS COUNTED 100
[2021-06-15 05:40] LABS: Alanine Aminotransfer (ALT/SGP 56 U/L (12-78); Albumin, Blood 2.6 g/dL (3.4-5.0); Albumin/Globulin Ratio 0.9 (0.8-1.8); Alk Phos 94 U/L (50-136); Anion Gap 8 mmol/L (6-16); Aspartate Aminotrans (AST/SGOT 18 U/L (12-37); Bilirubin, Total 0.5 mg/dL (0.1-1.0); Blood Urea Nitrogen 45 mg/dL (8-24); Bun/Creatinine Ratio 53.1 (12.0-20.0); CO2, Blood 35 mmol/L (21-32); Calcium, Blood 9.6 mg/dL (8.5-10.1); Chloride, Blood 93 mmol/L (98-108); Creatinine, Blood 0.85 mg/dL (0.40-1.00); Glomerular Filtration Rate >60 (60-); Glucose, Blood 194 mg/dL (70-99); Potassium, Blood 3.6 mmol/L (3.5-5.5); Sodium, Blood 136 mmol/L (136-145); Total Protein, Blood 5.6 g/dL (6.4-8.2)
--- NOTE | 2021-06-15 10:00 | NUR ---
THERAPY: PT IN ROOM TO WORK WITH PATIENT. WILL MONITOR PROGRESS.
--- NOTE | 2021-06-15 11:53 | NUR ---
HEART RATE: PT UP TO BATHROOM, HR 170'S WITH ACTIVITY. HR COMES BACK TO 120'S WITH REST. PT ENCOURAGED TO USE COMMODE VS BATHROOM AND TO CALL FOR ASSISTANCE.
--- NOTE | 2021-06-15 17:55 | NUR ---
PT HAS BEEN STABLE THIS SHIFT. PT HYPOTENSIVE AT TIMES, NONSYMPTOMATIC. BP MED HELD THIS AM. HR TACHYCARDIC WITH ANY ACTIVITY. PT USING COMMODE INDEP. REMAINS ON 6L O2. TELE CONT AFIB. BLOOD SUGARS REQUIRING COVERAGE AT EACH MEAL. PT CALLS APPROPRIATELY NEEDED. PLAN FOR HOME HEALTH AT DISCHARGE.
--- NOTE | 2021-06-16 05:16 | NUR ---
PT IS ALERT AND ORIENTED X4. DENIES PAIN. DRINKING FLUIDS. VOIDING USING THE COMMODE. UP WITH ONE ASSIST. VSS WITH TELE AFIB 100-110. AT TIMES JUMPTS TPO 120S, 130S, 140 FOR FEW SECONDS. LOPRESSOR WAS ORDERED DUE TO AFIB WAS SUSTAINED ON 130s BUT IT WAS NOT GIVEN BACUSE RATE WENT BACK TO 100-110s. PT SLEPT USING BIPAP.
[2021-06-16 06:36] LABS: BASOPHILS ABSOLUTE AUTO 0.09 K/mm3 (0.00-0.23); BASOPHILS PERCENT AUTO 1 % (0-2); EOSINOPHILS ABSOLUTE AUTO 0.18 K/mm3 (0.00-0.68); EOSINOPHILS PERCENT AUTO 1 % (0-6); Hematocrit 43.5 % (33.0-51.0); Hemoglobin 13.9 g/dL (11.5-16.0); IMMATURE GRAN ABSOLUTE AUTO 0.63 K/mm3 (0.00-0.10); IMMATURE GRAN PERCENT AUTO 5 % (0-1); LYMPHOCYTES ABSOLUTE AUTO 1.73 K/mm3 (0.84-5.20); LYMPHOCYTES PERCENT AUTO 13 % (21-46); MONOCYTES ABSOLUTE AUTO 1.59 K/mm3 (0.16-1.47); MONOCYTES PERCENT AUTO 12 % (4-13); Mean Corpuscular HGB 28.7 pg (26.0-34.0); Mean Corpuscular Volume 90 fL (80-100); NEUTROPHILS PERCENT AUTO 69 % (41-73); Platelet Count 562 K/mm3 (150-400); RDW Standard Deviation 45.5 fL (35.1-46.3); Red Blood Cell Count 4.85 M/mm3 (3.80-5.20); White Blood Cell Count 13.42 K/mm3 (4.00-11.30)
[2021-06-16 06:59] LABS: Alanine Aminotransfer (ALT/SGP 44 U/L (12-78); Albumin, Blood 2.7 g/dL (3.4-5.0); Albumin/Globulin Ratio 0.9 (0.8-1.8); Alk Phos 90 U/L (50-136); Anion Gap 7 mmol/L (6-16); Aspartate Aminotrans (AST/SGOT 10 U/L (12-37); Bilirubin, Total 0.5 mg/dL (0.1-1.0); Blood Urea Nitrogen 43 mg/dL (8-24); Bun/Creatinine Ratio 48.3 (12.0-20.0); CO2, Blood 35 mmol/L (21-32); Calcium, Blood 9.8 mg/dL (8.5-10.1); Chloride, Blood 94 mmol/L (98-108); Creatinine, Blood 0.89 mg/dL (0.40-1.00); Glomerular Filtration Rate >60 (60-); Glucose, Blood 160 mg/dL (70-99); Potassium, Blood 3.7 mmol/L (3.5-5.5); Sodium, Blood 136 mmol/L (136-145); Total Protein, Blood 5.7 g/dL (6.4-8.2)
--- NOTE | 2021-06-16 12:29 | NUR ---
DISCUSS HEART RATE WITH WITH MEDS RECEIVED. LOPRESSOR TARTRATE 25 MG NOW ORDERED
--- NOTE | 2021-06-16 12:55 | NUR ---
TALKED TO ABOUT German FRANZ MD TO ADJUST MEDS.
--- NOTE | 2021-06-16 15:38 | NUR ---
ALERT. ORIENTED. MD ADJUSTED MEDS AWARE OF AFIB SOMETIMES 130-140. HAS BEEN 120'S WITH FEW SECONDS HIGHER BUT NOT SUSTAINED. HEAD LIBRARIAN TO LET US KNOW IF SUSTAINED. GETS SOB WITH AMBULATION. INDEPENDENT IN ROOM TO BSC. IV PATENT. POSSIBLE D'C TOMORROW.
--- NOTE | 2021-06-16 16:31 | NUR ---
LEFT VOICE MAIL ON CELL PHONE TO CALL ME ABOUT PATIENTS V.S.
--- NOTE | 2021-06-17 04:45 | NUR ---
SHIFT SUMMARY: PT IS A/OX4. SHE WAS INDEPENDENT TO THE BSC DURING THE NOC SHIFT. HER SATS REMAINED >92% ON 5L OF O2. PER TELE MONITOR SHE WAS IN AFIB W/ A HR IN THE 110s-120s. SHE DID WEAR HER CPAP FOR A PORTION OF THE SHIFT. HER HS BLOOD SUGAR WAS 159 AND DID NOT NEED COVERAGE. SHE USES HER CALL LIGHT FOR ALL NEEDS.
--- NOTE | 2021-06-17 09:25 | NUR ---
BP MEDS AM BP OF 94/75 AND HR OF [address] PEREYRA GAVE ORDER TO CONTINUE TO GIVE HER ORDERED METOPROLOL, ORETIC, AND CARDIZEM.
--- NOTE | 2021-06-17 14:01 | NUR ---
Upon review of pt's new POLST, which she changed from a DNR to Full Code; noted she wants CPR, but no intubation. Attempted to discuss with pt this am, but she states she'll discuss again with her PCP, Dr. Hinojosa, and did not appear open to further discussion at this time.
--- NOTE | 2021-06-17 16:17 | NUR ---
I visited the patient in her [facility] room 342. She was awake and pleasant. I asked her if she would like assistance in completing a medicaid application. She was in agreement to this. I plan to do a medicaid application with her tomorrow morning.
--- NOTE | 2021-06-17 18:03 | NUR ---
SHIFT SUMMARY PT FLAT & A LITTLE WITHDRAWN T/O SHIFT. PT SPOKE WITH THIS RN ABOUT HER HUSBANDS RECENT PASSING AND IT SEEMED THERAPUTIC. PT TITRATED DOWN TO 2L AT REST, HOWEVER NEEDS 3-4L WITH ACTIVITY AND EATING. BP REMAIN SOFT. DR. PEREYRA AWARE. HR IMPROVED TO THE 102 THIS AFTERNOON. VS REVIEWED. PT UP ON SIDE OF BED, EATING DINNER. CALL LIGHT IN REACH. PT C/O HAVING DIFFICULTY SWALLOWING TO [employer]. DIET CHANGED TO MECH SOFT, NECTAR THICK. TOLERATING THIS WELL SO FAR. NO OTHER ACUTE CHANGES IN ASSESSMENT AT THIS TIME.
[2021-06-18 05:37] LABS: BASOPHILS ABSOLUTE AUTO 0.06 K/mm3 (0.00-0.23); BASOPHILS PERCENT AUTO 1 % (0-2); EOSINOPHILS PERCENT AUTO 2 % (0-6); Hematocrit 41.5 % (33.0-51.0); Hemoglobin 13.1 g/dL (11.5-16.0); IMMATURE GRAN ABSOLUTE AUTO 0.36 K/mm3 (0.00-0.10); IMMATURE GRAN PERCENT AUTO 3 % (0-1); LYMPHOCYTES ABSOLUTE AUTO 2.15 K/mm3 (0.84-5.20); LYMPHOCYTES PERCENT AUTO 17 % (21-46); MONOCYTES ABSOLUTE AUTO 1.24 K/mm3 (0.16-1.47); MONOCYTES PERCENT AUTO 10 % (4-13); Mean Corpuscular HGB 28.4 pg (26.0-34.0); Mean Corpuscular HGB Conc 31.6 g/dL (31.5-36.5); Mean Corpuscular Volume 90 fL (80-100); NEUTROPHILS ABSOLUTE AUTO 8.88 K/mm3 (1.96-9.15); NEUTROPHILS PERCENT AUTO 69 % (41-73); Platelet Count 484 K/mm3 (150-400); RDW Coefficient Variation 14.4 % (11.7-14.2); RDW Standard Deviation 47.8 fL (35.1-46.3); Red Blood Cell Count 4.61 M/mm3 (3.80-5.20); White Blood Cell Count 12.89 K/mm3 (4.00-11.30)
[2021-06-18 05:59] LABS: Albumin, Blood 2.7 g/dL (3.4-5.0); Anion Gap 6 mmol/L (6-16); Blood Urea Nitrogen 37 mg/dL (8-24); Bun/Creatinine Ratio 49.7 (12.0-20.0); CO2, Blood 34 mmol/L (21-32); Calcium, Blood 9.3 mg/dL (8.5-10.1); Chloride, Blood 98 mmol/L (98-108); Creatinine, Blood 0.74 mg/dL (0.40-1.00); Glomerular Filtration Rate >60 (60-); Glucose, Blood 109 mg/dL (70-99); Phosphorus, Blood 2.9 mg/dL (2.5-4.9); Potassium, Blood 3.8 mmol/L (3.5-5.5); Sodium, Blood 138 mmol/L (136-145)
--- NOTE | 2021-06-18 06:36 | NUR ---
SHIFT SUMMARY: PATIENT HAS NO COMPLANTS THIS SHIFT. USED CPAP FOR SLEEP, SOME INTERMITTENT DESATURATION OBSERVED DURING SLEEP. HR DID INCREASE UP TO THE 120'S DURING THESE PERIODS BUT DID NOT SYSTAIN. AT THIS TIME PATIENT IS A-FIB @ 95 PER TELI TECH.
--- NOTE | 2021-06-18 10:14 | NUR ---
Patient is a [facility] patient who was transferred to [facility] on 06/07/2021 due to ambulatory shortness of breath for two days. Patient is to discharge with resumption of home health orders. Gathered supporting documentation for resumption (face sheet, discharge order, med list, and H&P) and faxed to [facility] for review. No further interventions required. Olive Kowalski Referral Liaison
[2021-06-18] MEDS ORDERED: BASAGLAR K100 UNIT/1 SC (11:21)
[2021-06-18] MEDS ORDERED: Prednisone10 MG PO (11:21)
--- NOTE | 2021-06-18 13:15 | NUR ---
DISCHARGE PT DISCHARGED @ THIS TIME. PT PROVIDED W/ VERBAL AND WRITTEN DIRECTION. PT SISTER @ BEDSIDE DURING INSTRUCTION, PT AND FAMILY MEMEBER VERBALIZED UNDERSTANDING OF DIRECTION. VSS. IV DC'ED. TELE DC'ED. PT BELONGINGS IN TOW, EXCORTED OUT VIA WC TO [place], SISTER PROVIDE TRANSPORT HOME. HOME O2 IN PLACE.
--- NOTE | 2021-06-18 14:39 | NUR ---
This morning I visited the patient in her [facility] inpatient room 342. She was awake, alert and pleasant. She stated she was feeling much better and looking forward to returning to her sister's home. I completed a medicaid application with the patient that took about an hours time. I let Olive Kowalski with [facility] know that the patient is discharging today. While I was in the patient's room I also called her sister, Sol Knox, to let her know of the discharge plan. Sol stated she will be able to meet in the patient's room at 12:45 PM to consult with the nurse of discharge instructions. She stated she was excited to see her sister. I scheduled a hospital follow-up with Dr. Jessika Hinojosa (per patient's request) on June at 02:20 PM. Patient in agreement to discharge plan, denies barriers to discharge. Patient's nurse also consulted regarding the discharge plan.
== END 2021-06-18 13:53 | disposition home or self-care (01) | DRG 871 ==
LOC: ER 11:16 → MEDS 16:52
PROVIDERS: Emergency Medicine; Family Medicine; ADMIT Internal Medicine
DX: A41.9 Sepsis, unspecified organism (principal); J18.9 Pneumonia, unspecified organism; J96.21 Acute and chronic respiratory failure with hypoxia; J44.0 Chronic obstructive pulmonary disease with (acute) lower respiratory infection; J84.112 Idiopathic pulmonary fibrosis; E11.9 Type 2 diabetes mellitus without complications; Z20.822 Contact with and (suspected) exposure to COVID-19; I48.0 Paroxysmal atrial fibrillation; R65.20 Severe sepsis without septic shock; I50.9 Heart failure, unspecified; E03.9 Hypothyroidism, unspecified; F41.8 Other specified anxiety disorders; Z87.891 Personal history of nicotine dependence; Z88.6 Allergy status to analgesic agent; Z88.8 Allergy status to other drugs, medicaments and biological substances; Z79.2 Long term (current) use of antibiotics; Z79.51 Long term (current) use of inhaled steroids; Z79.82 Long term (current) use of aspirin; Z79.899 Other long term (current) drug therapy
CPT/HCPCS: 0241U; 36415; 71045; 71046; 80048; 80053; 80069; 82947; 83735; 83880; 84484; 85025; 85379; 93005; 93010; 94640; 94660; 94668; 94762; 96374; 96375; 96376; 97110; 97116; 97161; 97530-CQ; 99285-25; A9270; J0282; J0696; J1650; J1815; J1940; J2920; J2930; J7030; J7050; J7512

== ENCOUNTER → 2021-09-13 | Outpatient (CLI) | payer MEDICARE, OTHER ==
[~2021-09-13] MED LIST changes: +ALBU2.5V5 INH; +BASAGLAR K100 UNIT/1 SC; +ELIQUIS5 M2 PO; +METF500 PO; +Prednisone10 MG PO
[2021-09-13 12:44] LABS: Microalbumin, Urine Quant. <5.000 mg/L (0.000-20.000)
== END | disposition home or self-care (01) ==
LOC: LAB 11:16 → LAB SHORT 11:16 → LAB FUT 09-11 11:00
PROVIDERS: Internal Medicine Nephrology
DX: N18.2 Chronic kidney disease, stage 2 (mild) (principal); D75.1 Secondary polycythemia; N25.81 Secondary hyperparathyroidism of renal origin; E55.9 Vitamin D deficiency, unspecified; E78.00 Pure hypercholesterolemia, unspecified; R76.9 Abnormal immunological finding in serum, unspecified; R94.6 Abnormal results of thyroid function studies; R94.5 Abnormal results of liver function studies
CPT/HCPCS: 81050; 82043; 82570; 84156

== ENCOUNTER 2022-02-28 11:53 | Day surgery (SDC) | payer MEDICARE, OTHER ==
[~2022-02-28] VITALS: Ht 147.3 cm; Wt 71.9 kg
== END 2022-02-28 13:27 | disposition home or self-care (01) ==
LOC: ORSCSDS 11:53
PROVIDERS: Student in an Organized Health Care Education/Training Program
PROC: 0DJ08ZZ Inspection of Upper Intestinal Tract, Via Natural or Artificial Opening Endoscopic (ICD-10-PCS; principal; 2022-02-28 13:15)
DX: R13.10 Dysphagia, unspecified (principal); I10 Essential (primary) hypertension; R06.02 Shortness of breath; J44.9 Chronic obstructive pulmonary disease, unspecified; E03.9 Hypothyroidism, unspecified; Z99.81 Dependence on supplemental oxygen; K21.9 Gastro-esophageal reflux disease without esophagitis; E11.9 Type 2 diabetes mellitus without complications; E66.9 Obesity, unspecified; Z68.33 Body mass index [BMI] 33.0-33.9, adult; Z79.01 Long term (current) use of anticoagulants; Z79.899 Other long term (current) drug therapy
CPT/HCPCS: 82947; J0330; J0461; J2405; J2704; J7120; Q9968

== ENCOUNTER 2022-03-25 10:46 | Day surgery (SDC) | payer MEDICARE, OTHER ==
[~2022-03-25] VITALS: Ht 147.3 cm; Wt 72.1 kg
== END 2022-03-25 12:50 | disposition home or self-care (01) ==
LOC: ORSCSDS 10:46
PROVIDERS: Student in an Organized Health Care Education/Training Program
PROC: 0DB58ZX Excision of Esophagus, Via Natural or Artificial Opening Endoscopic, Diagnostic (ICD-10-PCS; principal; 2022-03-25 12:00)
PROC: 0DB98ZX Excision of Duodenum, Via Natural or Artificial Opening Endoscopic, Diagnostic (ICD-10-PCS; principal; 2022-03-25 12:00)
DX: R13.10 Dysphagia, unspecified (principal); K20.90 Esophagitis, unspecified without bleeding; K44.9 Diaphragmatic hernia without obstruction or gangrene; E03.9 Hypothyroidism, unspecified; E78.5 Hyperlipidemia, unspecified; I10 Essential (primary) hypertension; E11.9 Type 2 diabetes mellitus without complications; K21.9 Gastro-esophageal reflux disease without esophagitis; I48.91 Unspecified atrial fibrillation; J45.909 Unspecified asthma, uncomplicated; J44.9 Chronic obstructive pulmonary disease, unspecified; E66.9 Obesity, unspecified; Z68.33 Body mass index [BMI] 33.0-33.9, adult; Z79.84 Long term (current) use of oral hypoglycemic drugs; Z79.899 Other long term (current) drug therapy; Z79.01 Long term (current) use of anticoagulants
CPT/HCPCS: 82947; 88305; 88312; J2704; J7120